=== PATIENT | male | born 1960 ===

== ENCOUNTER 2020-05-08 07:57 | Outpatient (REF) | payer OTHER, SELFPAY ==
[2020-05-08 08:39] LABS: MANUAL DIFF FLAG NO
[2020-05-08 08:53] LABS: Basophils Percent Auto 0.5 % (0-2); Eosinophils Absolute Auto 0.2 X10*3/uL (0.0-0.4); Eosinophils Percent Auto 1.8 % (0-4); Hematocrit 43.1 % (42-52); Hemoglobin 13.8 g/dl (14.0-18.0); Imm Gran Abs Auto 0.03 X10*3/uL (0.00-0.03); Imm Gran Pct Auto 0.4 % (0.0-0.4); Lymphocytes Absolute Auto 2.4 X10*3/uL (1.2-4.9); Lymphocytes Percent Auto 28.6 % (20-40); Mean Corpuscular Hemoglobin 28.2 pg (27.0-33.0); Mean Corpuscular Volume 88.1 fL (80-98); Mean Platelet Volume 10.9 fL (9.4-12.4); Monocytes Absolute Auto 0.7 X10*3/uL (0.1-1.2); Monocytes Percent Auto 7.6 % (2-11); Neutrophils Absolute Auto 5.2 X10*3/uL (2.0-8.3); Neutrophils Percent Auto 61.1 % (45-73); Platelet Count 333 X10*3/uL (160-400); Red Blood Count 4.89 X10*6/uL (4.60-5.80); Red Cell Distribution Width 13.3 % (11.0-16.0); White Blood Count 8.5 X10*3/uL (4.8-10.8)
[2020-05-08 09:19] LABS: Alanine Aminotransferase 21 U/L (0-40); Albumin Level 4.5 g/dL (3.5-5.0); Alkaline Phosphatase 102 U/L (39-117); Anion Gap 13 (12-20); Aspartate Amino Transferase 18 U/L (5-37); Bilirubin Total 0.4 mg/dL (0.0-1.0); Blood Urea Nitrogen 14 mg/dL (9-16); Calcium 9.1 mg/dL (8.4-10.2); Carbon Dioxide 28 mmol/L (22-29); Chloride 106 mmol/L (96-108); Cholesterol 173 mg/dL; Estimated Glomerular Filt Rate > 60; Glucose Fasting 119 mg/dL (60-99); HDL Cholesterol 39 mg/dL; LDL Cholesterol Calculated 122 mg/dl; Potassium 5.1 mmol/l (3.3-5.1); Sodium 142 mmol/L (135-145); Total Protein 7.7 g/dL (6.5-8.0); Triglycerides 60 mg/dL
[2020-05-08 09:41] LABS: TSH reflex Free T4 2.01 mIU/mL (0.32-4.0)
== END 2020-05-08 07:58 | disposition home or self-care (01) ==
LOC: HO.LAB 07:57
PROVIDERS: Visit Provider Physician Assistant
DX: E78.9 Disorder of lipoprotein metabolism, unspecified (principal); I10 Essential (primary) hypertension
CPT/HCPCS: 36415; 80053; 80061; 84443; 85025

== ENCOUNTER 2020-06-29 12:43 | Outpatient (REF) | payer OTHER, SELFPAY ==
--- NOTE | 2020-06-29 17:39 | PFT_ITS ---
Forced vital capacity, FEV1 are normal. IMT98-65 is also normal, MVV normal. Post bronchodilator therapy, no significant changes noted. Total lung capacity and residual volume normal. Diffusion capacity normal. CONCLUSION: Normal pulmonary function test. No evidence of obstructive or restrictive pulmonary disorder. Nell Alex MD MSB/MODL / [id number]
== END 2020-06-29 12:44 | disposition home or self-care (01) ==
LOC: HO.RESP 12:43
PROVIDERS: Visit Provider Physician Assistant
DX: J45.20 Mild intermittent asthma, uncomplicated (principal); R73.09 Other abnormal glucose; E78.9 Disorder of lipoprotein metabolism, unspecified; I10 Essential (primary) hypertension
CPT/HCPCS: 94060; 94727; 94729

== ENCOUNTER 2020-10-09 09:06 | Outpatient (REF) | payer OTHER, SELFPAY ==
[2020-10-09 09:53] LABS: Hematocrit 43.9 % (42-52); Hemoglobin 14.2 g/dl (14.0-18.0); Mean Corpuscular HGB Conc 32.3 g/dl (31.0-36.0); Mean Corpuscular Hemoglobin 28.1 pg (27.0-33.0); Mean Corpuscular Volume 86.8 fL (80-98); Mean Platelet Volume 10.5 fL (9.4-12.4); Platelet Count 353 X10*3/uL (160-400); Red Blood Count 5.06 X10*6/uL (4.60-5.80); Red Cell Distribution Width 13.8 % (11.0-16.0); White Blood Count 9.1 X10*3/uL (4.8-10.8)
[2020-10-09 10:14] LABS: Alanine Aminotransferase 18 U/L (0-40); Albumin Level 4.4 g/dL (3.5-5.0); Alkaline Phosphatase 100 U/L (39-117); Anion Gap 12 (12-20); Aspartate Amino Transferase 16 U/L (5-37); Bilirubin Total 0.7 mg/dL (0.0-1.0); Blood Urea Nitrogen 19 mg/dL (9-16); Calcium 9.6 mg/dL (8.4-10.2); Carbon Dioxide 27 mmol/L (22-29); Chloride 106 mmol/L (96-108); Cholesterol 170 mg/dL; Estimated Glomerular Filt Rate 54; Glucose Fasting 114 mg/dL (60-99); HDL Cholesterol 38 mg/dL; LDL Cholesterol Calculated 116 mg/dl; Potassium 5.1 mmol/L (3.3-5.1); Sodium 140 mmol/L (135-145); Total Protein 7.7 g/dL (6.5-8.0); Triglycerides 80 mg/dL
[2020-10-09 10:20] LABS: Estimated Average Glucose 131 mg/dL; Hemoglobin A1c % 6.2 %
== END 2020-10-09 09:07 | disposition home or self-care (01) ==
LOC: HO.LAB 09:06
PROVIDERS: PCP Physician Assistant; Visit Provider Physician Assistant
DX: Z12.5 Encounter for screening for malignant neoplasm of prostate (principal); E78.9 Disorder of lipoprotein metabolism, unspecified; I10 Essential (primary) hypertension; R73.09 Other abnormal glucose
CPT/HCPCS: 36415; 80053; 80061; 83036; 84153; 85027

== ENCOUNTER 2021-03-06 07:19 | Outpatient (REF) | payer OTHER, SELFPAY ==
[2021-03-06 08:33] LABS: Creatinine Urine 103.05 mg/dL; Microalbum/Creatinine Ratio Ur 48.5 ug/mg cr
[2021-03-06 08:34] LABS: Alanine Aminotransferase 25 U/L (0-40); Albumin Level 4.3 g/dL (3.5-5.0); Alkaline Phosphatase 114 U/L (39-117); Anion Gap 10 (12-20); Aspartate Amino Transferase 19 U/L (5-37); Bilirubin Total < 0.2 mg/dL (0.0-1.0); Blood Urea Nitrogen 18 mg/dL (9-16); Calcium 9.8 mg/dL (8.4-10.2); Carbon Dioxide 27 mmol/L (22-29); Chloride 107 mmol/L (96-108); Cholesterol 170 mg/dL; Estimated Glomerular Filt Rate 55; Glucose Fasting 130 mg/dL (60-99); HDL Cholesterol 33 mg/dL; LDL Cholesterol Calculated 109 mg/dl; Potassium 4.7 mmol/L (3.3-5.1); Sodium 139 mmol/L (135-145); Total Protein 7.5 g/dL (6.5-8.0); Triglycerides 143 mg/dL
[2021-03-06 08:53] LABS: TSH reflex Free T4 3.62 uIU/mL (0.32-4.0)
[2021-03-06 09:46] LABS: Estimated Average Glucose 137 mg/dL; Hemoglobin A1c % 6.4 %
== END 2021-03-06 07:20 | disposition home or self-care (01) ==
LOC: HO.LAB 07:19
PROVIDERS: PCP Physician Assistant; Visit Provider Physician Assistant
DX: I10 Essential (primary) hypertension (principal); R73.09 Other abnormal glucose; E78.9 Disorder of lipoprotein metabolism, unspecified
CPT/HCPCS: 36415; 80053; 80061; 82043; 83036; 84443

== ENCOUNTER → 2021-05-06 13:02 | Outpatient (BNVA) | payer OTHER, SELFPAY | PROVIDERS: PCP Physician Assistant; Referring Provider Physician Assistant; Visit Provider Surgery | DX: Z01.818 Encounter for other preprocedural examination (principal); D36.7 Benign neoplasm of other specified sites; D23.5 Other benign neoplasm of skin of trunk | CPT/HCPCS: 99202 ==

== ENCOUNTER 2021-05-25 10:26 | Outpatient (REF) | payer OTHER, SELFPAY ==
[2021-05-25 11:41] LABS: Binax Internal Control QC Valid; Binax Lot number: 9864; Binax Now Covid-19 Ag Negative (Negative)
== END 2021-05-25 10:27 | disposition home or self-care (01) ==
LOC: HO.LAB 10:26
PROVIDERS: Visit Provider Internal Medicine
DX: Z20.822 Contact with and (suspected) exposure to COVID-19 (principal)
CPT/HCPCS: 36415; C9803

== ENCOUNTER 2021-06-13 12:54 | Outpatient (REF) | payer OTHER, SELFPAY ==
[2021-06-13 12:58] VITALS: BMI 38.0
[2021-06-13 12:59] VITALS: BP 150/73; PULSE 88; RESP 16; TEMP 37.1; O2SAT 97
[2021-06-13 13:17] VITALS: BP 157/63; PULSE 86; RESP 16; O2SAT 96
--- NOTE | 2021-06-13 13:19 | W.PM.OPN ---
Operative Note Operative Note Date of Service: 06/13/21 Narrative: Preop diagnosis: Multiple lesions, neck and left axilla Postop diagnosis: Multiple skin lesions, neck and left axilla Procedure: Excision and fulguration of multiple skin lesions, x 12, neck and left axilla Surgeon: Bridger Hernandez MD The patient is 60-year-old male with multiple skin lesions on the neck and left axilla. This all appeared to be papillomatous lesions ranging in size from about 1 cm to about 2 mm. All of these had very narrow stalks. He understood the technique of excision and fulguration under local anesthesia and was aware of the risks, benefits, and alternatives Was brought to the minor procedure room. He was placed supine. All the skin lesions on the neck and axilla were prepped and draped. Lidocaine 1% was used for local anesthesia. I excised all of the skin lesions at the base using Metzenbaum scissors. There were larger lesions x3 on the left axilla measured about 1 cm each but with narrow bases. The smaller lesions which were less than 2 mm were cauterized using the i-STAT . I also cauterized all the excision areas for hemostasis. Once hemostasis was ensured, I proceeded then apply small Band aids. The procedure was completed The patient tolerated procedure well. No complication noted. Estimated blood loss was less than 1 cc He was given wound care instructions.
== END 2021-06-13 12:55 | disposition home or self-care (01) ==
LOC: HO.MS 12:54
PROVIDERS: PCP Physician Assistant; Visit Provider Surgery
PROC: (CPT 11200; principal; 2021-06-13 13:00)
DX: L91.8 Other hypertrophic disorders of the skin (principal)
CPT/HCPCS: 11200; 88304; 88305

== ENCOUNTER → 2021-06-24 14:53 | Outpatient (BNVA) | payer OTHER, SELFPAY | PROVIDERS: PCP Physician Assistant; Referring Provider Physician Assistant; Visit Provider Surgery | DX: Z48.817 Encounter for surgical aftercare following surgery on the skin and subcutaneous tissue (principal); Z87.2 Personal history of diseases of the skin and subcutaneous tissue | CPT/HCPCS: 99212 ==

== ENCOUNTER → 2021-07-30 13:39 | Outpatient (BNVA) | payer OTHER, SELFPAY | PROVIDERS: PCP Physician Assistant; Visit Provider Orthopaedic Surgery | DX: G56.01 Carpal tunnel syndrome, right upper limb (principal) | CPT/HCPCS: 99202 ==

== ENCOUNTER 2021-08-12 09:57 | Day surgery (SDC) | payer OTHER, SELFPAY ==
--- NOTE | 2021-08-12 10:01 | W.PM.OPN ---
Operative Note Operative Note Date of Service: 08/12/21 Narrative: Preop diagnosis: 1. right Carpal tunnel syndrome Postop diagnosis: same Procedure: 1. right Carpal tunnel release Surgeon: Itzel Garcia MD Anesthesia: local block using 1% lidocaine with epinephrine Findings: Thickened transverse carpal ligament. hyperemic and mildly swollen median nerve through the carpal tunnel EBL: Less than 5 mL Specimens: None Complications: None Disposition: Brought to recovery room in stable condition Plan: Follow-up for 10-14 days for wound check and suture removal Indications: The patient is 60 years old, with right carpal tunnel syndrome that has been unresponsive to nonoperative management. The risks and benefits of operative treatment including but not limited to risk of damage to blood vessels, nerves, tendons, infection, persistent pain, persistent symptoms, or possible need for additional surgery were discussed with the patient and the patient wishes to proceed with surgery. Procedure: Once consent was obtained a local block was performed using a combination of 1% lidocaine with epinephrine. The patient was then brought back to the operating suite and placed on the operative table in supine position. A tourniquet was applied to the proximal aspect of the right upper extremity and the limb was prepped and draped in a standard surgical fashion. Once assured that we had a good block, a 1.5 cm longitudinal incision was made centered over the carpal tunnel. The incision was made through the skin to the subcutaneous tissues using a #15 blade. Dissection was made down to the level of the transverse carpal ligament with care being taken to protect the palmar cutaneous nerve. Once the transverse carpal ligament was clearly visualized, a longitudinal incision was made in the transverse carpal ligament 1st using a #15 blade, then using tenotomy scissors under direct visualization. Care was taken to look for and protect the motor branch of the median nerve when seen in this area. I extended the incision proximally approximately 1 cm using a zigzag at the distal palmar crease. This was done using a 15. Blade. I then carefully dissected down to the level of the transverse carpal ligament. The a longitudinal incision in the transverse carpal ligament was then extended proximally. This allowed me to better visualize the median nerve and the tendons as they passed through the carpal tunnel. The median nerve was noted to be somewhat swollen and hyperemic through the carpal tunnel. Once satisfied with our carpal tunnel release the wound was copiously irrigated with normal saline and hemostasis was obtained with a brief period of local pressure. The skin edges were reapproximated with some 5.0 nylon suture material and a sterile dressing was applied. The patient appears to have tolerated the procedure well and with no complications. All digits were well vascularized at the conclusion of the case.
[2021-08-12 11:28] VITALS: BP 181/92; PULSE 69; RESP 16; TEMP 36.4; O2SAT 99
[2021-08-12 11:30] VITALS: BMI 36.1
--- NOTE | 2021-08-12 12:09 | MHC.SHP ---
Pre-Procedural Eval Section A Date of Service: 08/12/21 The patient is an INPATIENT: No Changes since office visit: No Cold of Flu in the past 2 weeks, No New Medical Problems, No Changes in Medication and No Patient answered all questions The History & Physical has been completed within 30 days and I have reviewed it.: Yes Section B Chief Complaint: carpal tunnel Allergies: Allergies Allergy/AdvReac Type Severity Reaction Status Date / Time warfarin [Coumadin] Allergy Unknown rash Verified 08/12/21 11:26 lisinopril AdvReac Intermediate Cough Verified 08/12/21 11:26 Plan I have reviewed the history and physical and performed a pertinent physical examination on my patient. No changes have occurred unless specified.
[2021-08-12 12:52] VITALS: BP 188/87; PULSE 73; RESP 18; TEMP 37; O2SAT 98
== END 2021-08-12 12:54 | disposition home or self-care (01) ==
PROVIDERS: PCP Physician Assistant; Visit Provider Orthopaedic Surgery
PROC: (CPT 64721; principal; 2021-08-12 11:40)
DX: G56.01 Carpal tunnel syndrome, right upper limb (principal); R20.0 Anesthesia of skin; Z88.8 Allergy status to other drugs, medicaments and biological substances; Z79.899 Other long term (current) drug therapy
CPT/HCPCS: 64721; J0171

== ENCOUNTER → 2021-08-27 10:10 | Outpatient (BNVA) | payer OTHER, SELFPAY | PROVIDERS: PCP Physician Assistant; Visit Provider Orthopaedic Surgery | DX: Z48.811 Encounter for surgical aftercare following surgery on the nervous system (principal); Z86.69 Personal history of other diseases of the nervous system and sense organs | CPT/HCPCS: 99212 ==

== ENCOUNTER 2021-11-01 07:02 | Outpatient (REF) | payer OTHER, SELFPAY ==
[2021-11-01 07:48] LABS: Hemoglobin 13.9 g/dl (14.0-18.0); Mean Corpuscular HGB Conc 32.3 g/dl (31.0-36.0); Mean Corpuscular Volume 86.5 fL (80.0-98.0); Mean Platelet Volume 10.6 fL (9.4-12.4); Platelet Count 290 X10*3/uL (160-400); Red Blood Count 4.97 X10*6/uL (4.60-5.80); Red Cell Distribution Width 13.2 % (11.0-16.0); White Blood Count 9.1 X10*3/uL (4.8-10.8)
[2021-11-01 07:56] LABS: Microalbum/Creatinine Ratio Ur 51.3 ug/mg cr
[2021-11-01 07:57] LABS: Alanine Aminotransferase 21 U/L (0-40); Albumin Level 4.2 g/dL (3.5-5.0); Alkaline Phosphatase 93 U/L (39-117); Anion Gap 13 (12-20); Aspartate Amino Transferase 18 U/L (5-37); Bilirubin Total 0.5 mg/dL (0.0-1.0); Blood Urea Nitrogen 16 mg/dL (9-16); Calcium 9.2 mg/dL (8.4-10.2); Carbon Dioxide 24 mmol/L (22-29); Chloride 109 mmol/L (96-108); Cholesterol 149 mg/dL; Estimated Average Glucose 134 mg/dL; Estimated Glomerular Filt Rate > 60; Glucose Fasting 120 mg/dL (60-99); HDL Cholesterol 37 mg/dL; Hemoglobin A1c % 6.3 %; LDL Cholesterol Calculated 99 mg/dl; Potassium 4.9 mmol/L (3.3-5.1); Sodium 141 mmol/L (135-145); Total Protein 7.5 g/dL (6.5-8.0); Triglycerides 66 mg/dL
[2021-11-01 08:13] LABS: Prostate Specific Antigen Scr 2.81 ng/mL (<0.05-4.0)
== END 2021-11-01 07:03 | disposition home or self-care (01) ==
LOC: HO.LAB 07:02
PROVIDERS: PCP Physician Assistant; Visit Provider Physician Assistant
DX: Z12.5 Encounter for screening for malignant neoplasm of prostate (principal); R73.09 Other abnormal glucose; E78.9 Disorder of lipoprotein metabolism, unspecified; I10 Essential (primary) hypertension
CPT/HCPCS: 36415; 80053; 80061; 82043; 83036; 84153; 85027

== ENCOUNTER 2022-03-24 08:57 | Outpatient (REF) | payer OTHER, SELFPAY ==
[2022-03-24 09:38] LABS: Hematocrit 41.4 % (42.0-52.0); Hemoglobin 13.6 g/dl (14.0-18.0); Mean Corpuscular HGB Conc 32.9 g/dl (31.0-36.0); Mean Corpuscular Hemoglobin 28.5 pg (27.0-33.0); Mean Corpuscular Volume 86.6 fL (80.0-98.0); Mean Platelet Volume 10.6 fL (9.4-12.4); Platelet Count 312 X10*3/uL (160-400); Red Blood Count 4.78 X10*6/uL (4.60-5.80); Red Cell Distribution Width 13.2 % (11.0-16.0); White Blood Count 9.1 X10*3/uL (4.8-10.8)
[2022-03-24 09:48] LABS: Estimated Average Glucose 131 mg/dL; Hemoglobin A1c % 6.2 %
[2022-03-24 10:13] LABS: Alanine Aminotransferase 16 U/L (0-40); Albumin Level 4.4 g/dL (3.5-5.0); Alkaline Phosphatase 94 U/L (39-117); Anion Gap 13 (12-20); Aspartate Amino Transferase 14 U/L (5-37); Bilirubin Total 0.5 mg/dL (0.0-1.0); Blood Urea Nitrogen 13 mg/dL (9-16); Calcium 9.9 mg/dL (8.4-10.2); Carbon Dioxide 28 mmol/L (22-29); Chloride 106 mmol/L (96-108); Cholesterol 167 mg/dL; Estimated Glomerular Filt Rate > 60; Glucose Fasting 102 mg/dL (60-99); HDL Cholesterol 37 mg/dL; LDL Cholesterol Calculated 98 mg/dl; Potassium 4.8 mmol/L (3.3-5.1); Sodium 142 mmol/L (135-145); Total Protein 7.6 g/dL (6.5-8.0); Triglycerides 160 mg/dL
[2022-03-24 10:26] LABS: TSH reflex Free T4 2.06 uIU/mL (0.32-4.0)
== END 2022-03-24 08:58 | disposition home or self-care (01) ==
LOC: HO.LAB 08:57
PROVIDERS: PCP Physician Assistant; Visit Provider Physician Assistant
DX: E78.9 Disorder of lipoprotein metabolism, unspecified (principal); R73.09 Other abnormal glucose; I10 Essential (primary) hypertension
CPT/HCPCS: 36415; 80053; 80061; 83036; 84443; 85027

== ENCOUNTER 2022-04-08 15:45 | Outpatient (REF) | payer OTHER, SELFPAY ==
--- NOTE | ~2022-04-08 | XR_ITS ---
EXAMINATION: XR ABDOMEN KUB CLINICAL INDICATION: Unspecified abdominal pain. COMPARISON: CT abdomen and pelvis dated 02/22/2016. TECHNIQUE: 2 AP views of the abdomen and pelvis are submitted. FINDINGS: The bowel gas pattern is normal, with no evidence of ileus or obstruction. There is gas and stool identified to the level of the rectum. No free intraperitoneal air seen. No unusual soft tissue calcifications are noted. No acute osseous abnormality is seen. There is multi-level thoracolumbar spondylosis. XR/XR KUB IMPRESSION: Unremarkable examination.
== END 2022-04-08 15:46 | disposition home or self-care (01) ==
LOC: HO.XRAY 15:45
PROVIDERS: PCP Physician Assistant; Visit Provider Physician Assistant
DX: R10.9 Unspecified abdominal pain (principal)
CPT/HCPCS: 74018

== ENCOUNTER 2022-10-27 07:05 | Outpatient (REF) | payer OTHER, SELFPAY ==
[2022-10-27 07:51] LABS: Hematocrit 41.7 % (42.0-52.0); Hemoglobin 13.6 g/dl (14.0-18.0); Mean Corpuscular HGB Conc 32.6 g/dl (31.0-36.0); Mean Corpuscular Hemoglobin 28.6 pg (27.0-33.0); Mean Corpuscular Volume 87.6 fL (80.0-98.0); Mean Platelet Volume 10.7 fL (9.4-12.4); Platelet Count 311 X10*3/uL (160-400); Red Blood Count 4.76 X10*6/uL (4.60-5.80); Red Cell Distribution Width 13.2 % (11.0-16.0); White Blood Count 8.9 X10*3/uL (4.8-10.8)
[2022-10-27 08:21] LABS: Alanine Aminotransferase 18 U/L (0-40); Albumin Level 4.1 g/dL (3.5-5.0); Alkaline Phosphatase 84 U/L (39-117); Anion Gap 11 (12-20); Aspartate Amino Transferase 15 U/L (5-37); Bilirubin Total 0.4 mg/dL (0.0-1.0); Blood Urea Nitrogen 14 mg/dL (9-16); Calcium 9.2 mg/dL (8.4-10.2); Carbon Dioxide 27 mmol/L (22-29); Chloride 106 mmol/L (96-108); Cholesterol 183 mg/dL; Estimated Glomerular Filt Rate > 60; Glucose Fasting 118 mg/dL (60-99); HDL Cholesterol 32 mg/dL; LDL Cholesterol Calculated 122 mg/dl; Potassium 4.1 mmol/L (3.3-5.1); Sodium 140 mmol/L (135-145); Total Protein 7.2 g/dL (6.5-8.0); Triglycerides 145 mg/dL
[2022-10-27 08:38] LABS: TSH reflex Free T4 2.78 uIU/mL (0.32-4.0)
== END 2022-10-27 07:06 | disposition home or self-care (01) ==
LOC: HO.LAB 07:05
PROVIDERS: PCP Physician Assistant; Visit Provider Physician Assistant
DX: I10 Essential (primary) hypertension (principal); E78.9 Disorder of lipoprotein metabolism, unspecified
CPT/HCPCS: 36415; 80053; 80061; 84443; 85027

== ENCOUNTER 2023-01-14 14:38 | Outpatient (AMB) | payer OTHER, SELFPAY ==
[2023-01-14 14:59] VITALS: BP 124/70; PULSE 70; O2SAT 98; BMI 37.9
--- NOTE | 2023-01-14 14:59 | MHC.PC.OV ---
Vital Signs 01/14/23 14:59 Height 5 ft 6 in Weight 235 lb BMI 37.9 BP 124/70 Blood Pressure Location Lt brachial Position Sitting Pulse 70 Pulse Source Pulse Oximeter Pulse Oximetry (%) 98 Oxygen Delivery Method Room Air Intake Visit Reasons: 3 month f/u Intake Note: Pt is here for 3 months F/U Model Photographers' Required: No Accompanied by: Self / Same As Patient Allergies warfarin [Coumadin] Allergy (Unknown, Verified 01/14/23 15:21) rash lisinopril Adverse Reaction (Intermediate, Verified 01/14/23 15:21) Cough Medication List - Last Reconciled 01/14/23 by Alejandro Castellanos PA-C albuterol sulfate 90 mcg/actuation (Ventolin HFA) 2 puffs inhalation Q6H PRN apixaban 5 mg PO BID 90 days cetirizine (Zyrtec) 10 mg PO DAILY 90 days fluticasone propionate 110 mcg/actuation (Flovent HFA) 1 puff inhalation BID 30 days hydrochlorothiazide 12.5 mg PO DAILY losartan 100 mg PO DAILY 90 days metformin 500 mg PO BID 90 days metoprolol succinate ER 100 mg PO DAILY 90 days montelukast (Singulair) 10 mg PO DAILY 90 days simvastatin 20 mg PO DAILY 90 days Tobacco use date assessed: 10/07/22 Dental Screening Dental Screen Date: 01/14/23 Did you have a dental visit in the last 12 months?: No Did you have a dental problem in the last 6 months where you did not have access to dental care?: No Was dental information given to patient?: Patient declined HPI 3 month f/u HPI Details Sergio is a 31 y ear/old M here tod ay for a a follow- up visit ? Narinder katz has a past m edical history sig nificant for DVT, hypertension, impa ired glucose metab olism, hypertensio n, obesity. Cathy rn--> reports over the last week hav ing bilateral shou lder pain worse in the morning when he wakes up. He d enies any trauma t o his upper extrem ities. He is inte rested in getting x-rays. . ?? .. ? Hypertension :? Patient reports his blood pressur es have been 130s systolic consisten tly.? Continues on losartan , hydroc hlorothiazide and metoprolol. ? .. ? Histor y of recurrent DVT left lower extrem ity: Patient seen by Hematology for recurrent DVT-- > 01/24/2020 and recom mends long-term an ticoagulation.? Ponce s left lower extre mity edema has got ten better and onl y has trace edema. ? Otherwise denies any overt signs o f bleeding. .. As thma:? Has been we ll controlled over the last several months? with the a ddition of mainten ance inhalers.? He uses Flovent inha ler twice a day wi th good effect.? D enies any nighttim e awakenings with asthma symptoms. . Obesity:? Unfort unately has not lo st any weight sinc e last office visi t.? He does unders tand his BMI is ov er 30 and continue s to try to be mor e physically activ e to reduce his we ight. .. Impaired glucose metabolis m:? Patient fasti ng blood sugar sli ghtly elevated, A1 c remains acceptab le.? He continues on metformin 500 b .i.d. though has n ot been taking thi s medication in qu ite a while. . ? Laboratory Tests 03/24/22 03/24/22 10/27/22 09:08 09:08 07:23 Fasting Glucose 102 H 118 H Hemoglobin A1c % 6.2 Cholesterol 183 LDL Cholesterol, C alc 122 TSH 2.06 2.78 [facility] Medical History (Updated 01/15/23 @ 07:41 by Alejandro Castellanos PA-C) Erectile dysfunction Fibroepithelial polyp Left flank pain Papilloma Recurrent deep vein thrombosis (DVT) Surgical History History of surgical removal of skin lesion No pertinent past surgical history S/P carpal tunnel release Family History Father No problems noted. Mother Arthritis Sister Heart attack Son Asthma Social History Housing: House Alcohol intake: former Patient Tobacco Use Status: Never used Tobacco e-Cigarette/Vaping Use: Never Used Second Hand Smoke Exposure: No service: No Current occupational status: employed Current occupation: [employer] Cognitive needs: No Hearing needs: No Vision needs: Yes Questionnaire Thrive Questionnaire Date Thrive assessed: 10/07/22 STEPHANIE-7 AMB Questionnaire STEPHANIE-7 Date STEPHANIE - 7 assessed: 10/07/22 Source: Developed by Drs. Yoni Rose, Ml Escobar, Danielito Rachel and colleagues, with an educational danica from [employer]. Review of Systems Const Denies headache(s) Eyes Denies loss of vision ENT Denies vertigo, Denies dizziness, Denies headache(s) and Denies sore throat Card Denies chest pain, Denies leg edema and Denies lightheadedness Resp Denies cough, Denies hemoptysis and Denies wheezing GI Denies abdominal pain, Denies melena, Denies constipation, Denies diarrhea and Denies vomiting Denies dysuria, Denies urinary frequency and Denies urinary urgency Musc Denies arthralgias, Denies joint swelling, Denies numbness and Denies tingling Neuro Denies Abnormal speech present, Denies behavioral changes, Denies vertigo, Denies dizziness, Denies headache(s), Denies loss of vision, Denies memory loss, Denies numbness and Denies tingling Psych Denies anxiety, Denies behavioral changes, Denies depression, Denies memory loss and Denies panic attacks Dominguez/Lymph Denies easy bleeding and Denies easy bruising Aller/Immun Denies wheezing Physical exam (Primary Care) Vital Signs: Last Vital Signs Pulse 70 01/14/23 14:59 BP 124/70 01/14/23 14:59 Pulse Ox 98 01/14/23 14:59 Oxygen Delivery Method Room Air 01/14/23 14:59 BMI result Body Mass Index 37.9 BMI Assessment/Plan discussion: High Tobacco/Smoking Status: Tobacco use Status Tobacco use date assessed 10/07/22 01/14/23 15:06 Patient Tobacco Use Status Never used Tobacco 01/14/23 15:06 e-Cigarette/Vaping Use Never Used 01/14/23 15:06 Thrive Assessment: Date of Thrive Assessment Date Thrive assessed 10/07/22 01/14/23 15:06 Const Other: Obese General: healthy appearing, no acute distress, alert and awake Nutritional Appearance: well nourished Orientation/consciousness: oriented to person, oriented to place and oriented to time HENMT Ears: TM's normal bilaterally General nose exam: Normal nasal mucous membranes and turbinates present Eyes Conjunctivae: conjunctivae normal Sclerae: sclerae normal Pupils: Equal, round and reactive pupils present Neck Neck: Yes no lymphadenopathy and Yes no JVD Thyroid: Thyroid normal Carotids: no bruits Resp Effort & Inspection: normal respiratory effort and not tachypneic Auscultation: no crackles, no rales, no rhonchi and no wheezes Cardio Rate: regular rate Rhythm: regular rhythm Heart sounds: no murmurs and normal S1 and S2 GI Palpation (GI): Soft to palpation, nontender, no hepatomegaly and no splenomegaly Auscultation: normal bowel sounds Skin General skin exam: no rashes or lesions noted and dry skin Neuro General: oriented to person, oriented to place and oriented to time Cranial nerves: Yes Equal, round and reactive pupils present Speech: No Abnormal speech present Gait exam (Neuro): Normal gait present Motor exam (neuro): no tremor noted Extrem Right upper extremity: full ROM Left upper extremity: full ROM Right lower extremity: full ROM; no edema Left lower extremity: full ROM; no edema Psych Mental Status: mental status grossly normal Speech and movement: Normal speech and movement present Affect: normal affect Attitude: cooperative Thought process: Normal thought process present Assessment and Plan Assessment & Plan (1) HTN (hypertension): Code(s): I10 - Essential (primary) hypertension Qualifiers: Hypertension type: essential hypertension Qualified Code(s): I10 - Essential (primary) hypertension Plan: Patient's blood pressure acceptable today in office. Will continue current dose of antihypertensive . Goal blood pressure to be below 40/90 (2) Borderline high cholesterol: Code(s): E78.9 - Disorder of lipoprotein metabolism, unspecified Plan: Patient's most recent lipid panel stable. Continues on low-dose statin therapy. Goal LDL to remain below 160 (3) Impaired glucose metabolism: Code(s): R73.09 - Other abnormal glucose Plan: Patient continues on metformin 500 b.i.d.. A1c acceptable. Continue on lifestyle to reduce carbohydrates in his diet. (4) Bilateral shoulder pain: Code(s): M25.511 - Pain in right shoulder; M25.512 - Pain in left shoulder Qualifiers: Chronicity: acute Qualified Code(s): M25.511 - Pain in right shoulder; M25.512 - Pain in left shoulder Plan: Will send for bilateral shoulder x-rays (5) Obese: Code(s): E66.9 - Obesity, unspecified Qualifiers: Obesity type: due to excess calories Obesity classification: adult class 2 (BMI 35 - 39.9) Serious obesity comorbidity presence: without serious comorbidity Body mass index: BMI 37.0-37.9 Qualified Code(s): E66.09 - Other obesity due to excess calories; Z68.37 - Body mass index [BMI] 37.0-37.9, adult Plan: Patient does understand his BMI is over 30 will work on being more physically active and adapting to better eating habits to reduce his weight Orders: Orders XR shoulder LT 1V 01/14/23 M25.511 - Pain in right shoulder, M25.512 - Pain in left shoulder XR shoulder RT 1V 01/14/23 M25.511 - Pain in right shoulder, M25.512 - Pain in left shoulder Comprehensive [place]. Panel Fast 5 Months I10 - Essential (primary) hypertension Lipid Panel 5 Months E78.9 - Disorder of lipoprotein metabolism, unspecified Prostate Specific Antigen Scr 5 Months I10 - Essential (primary) hypertension, Z12.5 - Encounter for screening for malignant neoplasm of prostate Microalbumin, Random (w Creat) 5 Months I10 - Essential (primary) hypertension Complete Blood Count no Diff 5 Months I82.409 - Acute embolism and thrombosis of unspecified deep veins of unspecified lower extremity Medications: Refilled cetirizine (Zyrtec) 10 mg PO DAILY 90 days 90 tabs 3RF allergy symptoms J45.20 - Mild intermittent asthma, uncomplicated Coding Level of Care Code Est Pt Level 4 (76173) Diagnoses HTN (hypertension) I10 Hypertension type: essential hypertension Borderline high cholesterol E78.9 Impaired glucose metabolism R73.09 Bilateral shoulder pain M25.511; M25.512 Chronicity: acute Obese E66.09; Z68.37 Obesity type: due to excess calories Obesity classification: adult class 2 (BMI 35 - 39.9) Serious obesity comorbidity presence: without serious comorbidity Body mass index: BMI 37.0-37.9
== END 2023-01-14 15:33 | disposition home or self-care (01) ==
PROVIDERS: PCP Physician Assistant; Visit Provider Physician Assistant
DX: I10 Essential (primary) hypertension (principal); E78.9 Disorder of lipoprotein metabolism, unspecified; R73.09 Other abnormal glucose; M25.511 Pain in right shoulder; M25.512 Pain in left shoulder; E66.09 Other obesity due to excess calories; Z68.37 Body mass index [BMI] 37.0-37.9, adult
CPT/HCPCS: 99214

== ENCOUNTER 2023-01-14 15:37 | Outpatient (REF) | payer OTHER, SELFPAY ==
--- NOTE | ~2023-01-14 | XR_ITS ---
EXAMINATION: XR SHOULDER BILATERAL CLINICAL INFORMATION: Bilateral shoulder pain, left more than right COMPARISON: None available. TECHNIQUE: AP, Grashey, scapular Y and axillary views of both shoulders were acquired. FINDINGS: There is no evidence of fracture or dislocation of either the left or right shoulder. There are calcifications superior to the humeral head bilaterally indicative of calcific tendinosis. The glenohumeral articulations are preserved. Mild bilateral acromioclavicular proliferative changes are noted. There appears to be a small calcific body adjacent to the greater tuberosity of the left shoulder, perhaps a loose body. XR/XR shoulder RT 1V IMPRESSION: 1. Bilateral calcific tendinosis. 2. Small osseous fragment adjacent to the left greater tuberosity, perhaps an intraosseous loose body. 3. Mild acromioclavicular proliferative changes bilaterally.
--- NOTE | ~2023-01-14 | XR_ITS ---
EXAMINATION: XR SHOULDER BILATERAL CLINICAL INFORMATION: Bilateral shoulder pain, left more than right COMPARISON: None available. TECHNIQUE: AP, Grashey, scapular Y and axillary views of both shoulders were acquired. FINDINGS: There is no evidence of fracture or dislocation of either the left or right shoulder. There are calcifications superior to the humeral head bilaterally indicative of calcific tendinosis. The glenohumeral articulations are preserved. Mild bilateral acromioclavicular proliferative changes are noted. There appears to be a small calcific body adjacent to the greater tuberosity of the left shoulder, perhaps a loose body. XR/XR shoulder LT 1V IMPRESSION: 1. Bilateral calcific tendinosis. 2. Small osseous fragment adjacent to the left greater tuberosity, perhaps an intraosseous loose body. 3. Mild acromioclavicular proliferative changes bilaterally.
== END 2023-01-14 15:38 | disposition home or self-care (01) ==
LOC: HO.XRAY 15:37
PROVIDERS: PCP Physician Assistant; Visit Provider Physician Assistant
DX: M25.511 Pain in right shoulder (principal); M25.512 Pain in left shoulder
CPT/HCPCS: 73020

== ENCOUNTER 2023-03-07 10:00 | Outpatient (AMB) | payer OTHER, SELFPAY ==
--- NOTE | 2023-03-07 11:51 | MHC.OFFWIV ---
Intake Vital Signs 03/07/23 11:54 Height 5 ft 6 in Weight 232 lb BMI 37.4 BP 138/82 Blood Pressure Location Lt brachial Position Sitting Pulse 87 Pulse Source Pulse Oximeter Pulse Oximetry (%) 97 Oxygen Delivery Method Room Air Intake Visit Reasons: EP-Dry [phone] Intake Note: Patient is here with dry cough for 2.5 weeks, tried taking Nyquil and his asthma pump, but no relief, especially at night. Patient Tobacco Use Status: Never used Tobacco Allergies warfarin [Coumadin] Allergy (Unknown, Verified 03/07/23 11:53) rash lisinopril Adverse Reaction (Intermediate, Verified 03/07/23 11:53) Cough Do you need a note to return to daycare/school/sports/work: No HPI HPI Comments History of Present Illness Details This is a 62-year-old male with history of recurrent deep vein thrombosis, hypertension, hyperlipidemia, and asthma who presents to the office today for sick visit. Patient complaining of a persistent dry cough x2 and half weeks. He states he had some viral URI symptoms such as congestion and rhinorrhea approximately 2 weeks ago. He then started to developed a persistent dry cough. He denies any chest congestion. He denies any chest pain or shortness of breath. He reports some intermittent wheezing especially at nighttime and he has been utilizing his albuterol inhaler without significant relief. He denies any fevers or chills. [facility] Medical History (Updated 01/29/23 @ 13:03 by Alejandro Castellanos PA-C) Left flank pain Fibroepithelial polyp Papilloma Erectile dysfunction Recurrent deep vein thrombosis (DVT) Surgical History S/P carpal tunnel release History of surgical removal of skin lesion No pertinent past surgical history Family History Father No problems noted. Mother Arthritis Sister Heart attack Son Asthma Social History Housing: House Alcohol intake: former Patient Tobacco Use Status: Never used Tobacco e-Cigarette/Vaping Use: Never Used Second Hand Smoke Exposure: No service: No Current occupational status: employed Current occupation: [employer] Cognitive needs: No Hearing needs: No Vision needs: Yes Review of Systems Const All systems reviewed & are unremarkable except as noted in HPI and below Reports no additional complaints Eyes Reports no additional complaints ENT Reports no additional complaints Card Reports no additional complaints Resp Reports no additional complaints GI Reports no additional complaints Reports no additional complaints Musc Reports no additional complaints Skin/Breast Reports system reviewed and no additional complaints, except as documented Neuro Reports no additional complaints Psych Reports no additional complaints Endo Reports no additional complaints Dominguez/Lymph Reports no additional complaints Aller/Immun Reports no additional complaints Physical Exam Vital Signs: Last Vital Signs Pulse 87 03/07/23 11:54 BP 138/82 03/07/23 11:54 Pulse Ox 97 03/07/23 11:54 Oxygen Delivery Method Room Air 03/07/23 11:54 BMI result Body Mass Index 37.4 Const Other: Vital signs reviewed. Constitutional: Non-toxic appearing. No acute distress. Well-developed and well-nourished. HEENT: Normocephalic and atraumatic. Moist mucous membranes. Skin: Warm and dry. No rashes or lesions noted. Neck: Full and painless range of motion. No cervical lymphadenopathy. Cardio: Regular rate and rhythm. No murmurs, gallops, or rubs. No lower extremity edema. No JVD. Pulmonary: No respiratory distress. No accessory muscle usage. Scant expiratory wheezing. Gastrointestinal: Soft, nontender, and nondistended in all 4 quadrants. Normoactive bowel sounds in all 4 quadrants. Musculoskeletal: Normal range of motion in joints throughout the body. No deformity or other signs of injury. Neuro: Alert and oriented x4. Cranial nerves 2-12 grossly intact. No focal deficits appreciated. Psych: Normal mood and affect. Assessment & Plan Assessment & Plan (1) Acute bronchitis: Code(s): J20.9 - Acute bronchitis, unspecified Plan: This is a 62-year-old male with history of essential hypertension, hyperlipidemia, asthma, and recurrent DVT who presents to the office complaining of a dry cough x2 and half weeks. On physical examination, there is scant expiratory wheezing. His vital signs are stable, his physical exam is otherwise benign, and he is overall nontoxic appearing. History and physical most consistent with acute bronchitis. Low suspicion for pulmonary embolism as patient is anticoagulated and he is taking his apixaban as prescribed and he has no shortness of breath. We will treat acute bronchitis with p.o. prednisone 40 mg daily x5 days as well as p.o. azithromycin 500 mg today followed by 250 mg daily x4 days. Patient advised to follow-up here or proceed to the emergency room if he were to develop shortness of breath, sputum production/hemoptysis, or fever/chills. Patient verbalizes understanding and he is in agreement with the plan. Medications: New prednisone 40 mg (2 x 20 mg) PO DAILY 10 tabs 0RF azithromycin For 250 mg dose pack: take 500 mg today (day 1), then 250 mg for 4 days (days 2-5) PO 6 tabs 0RF Coding Level of Care Code Est Pt Level 3 (78321) Diagnoses Acute bronchitis J20.9
[2023-03-07 11:54] VITALS: BP 138/82; PULSE 87; O2SAT 97; BMI 37.4
== END 2023-03-07 12:24 | disposition home or self-care (01) ==
PROVIDERS: PCP Physician Assistant; Visit Provider Physician Assistant Medical
DX: J20.9 Acute bronchitis, unspecified (principal)
CPT/HCPCS: 99051; 99213

== ENCOUNTER 2023-03-19 12:47 | Outpatient (RCR) | payer OTHER, SELFPAY ==
--- NOTE | 2023-03-19 13:40 | MHC.PT.EP ---
[facility] [place] Office [place] Office [place] Office [address] [phone] F: [phone] F: [phone] F: [phone] F: [phone] Physical Therapy Plan of Care Date of Evaluation: 03/19/23 Date of Surgery: Diagnosis: tendinitis of L shoulder Assessment: Patient is a 62 year old R handed male who presents with s/s consistent with L shoulder pain, L shoulder tendinitis. He works with daily job demands including [employer]. Patient past medical history includes DM, DVT, blood thinners, and back pain. Current impairments include pain, posture, ROM, strength, activity tolerance and functional mobility. Functional limitations include decreased ability to reach, lift, carry, push, pull, dress and sleep. Patient is motivated with good rehab potential. Skilled PT will address impairments and functional limitations in order to achieve goals. Frequency and Duration: The patient will be seen 2x/week for 5 weeks Short Term Goals: I with HEP - 2 weeks AROM flexion and abduction to 145 - 3 weeks TTP absent in L shoulder - 3 weeks Senior Contracts Administrator Goals: AROM full except ER 65 - 5 weeks SPADI 30/130 or better - 5 weeks Strength 4/5 grossly - 5 weeks Pain free sleep - 5 weeks Treatment Plan: Modalities to reduce pain, spasms and effusion. Manual therapy to restore motion and function. Therapeutic exercise to improve strength and flexibility. Neuromuscular re-education for posture and balance. Therapeutic activities to return to functional activities of daily living. Electronically signed by: Valentin Camilo, PT Please sign and return to therapist. Thank you for your referral.
--- NOTE | 2023-06-09 10:41 | MHC.PT.DC ---
[facility] [place] Office [place] Office [place] Office [address] [phone] F: [phone] F: [phone] F: [phone] F: [phone] Physical Therapy Discharge Report Diagnosis: tendinitis of L shoulder Date of Surgery: Date of Evaluation: 03/19/23 Date of Discharge: 03/21/23 Treatments to Date: 1 Cancellations to Date: No Shows to Date: Discharge Status: Patient Elected to Stop Discharge Summary: Patient is a 62 year old R handed male who presents with s/s consistent with L shoulder pain, L shoulder tendinitis. He works with daily job demands including [employer]. Patient past medical history includes DM, DVT, blood thinners, and back pain. Current impairments include pain, posture, ROM, strength, activity tolerance and functional mobility. Functional limitations include decreased ability to reach, lift, carry, push, pull, dress and sleep. Patient is motivated with good rehab potential. Skilled PT will address impairments and functional limitations in order to achieve goals. Electronically signed by: Valentin Camilo, PT Please sign and return to therapist. Thank you for your referral.
== END 2023-06-09 10:41 | disposition home or self-care (01) ==
LOC: HO.PTCHIC 12:47
PROVIDERS: PCP Physician Assistant; Visit Provider Physician Assistant
DX: M75.32 Calcific tendinitis of left shoulder (principal)
CPT/HCPCS: 97110; 97163

== ENCOUNTER 2023-05-19 06:36 | Outpatient (REF) | payer OTHER, SELFPAY ==
[2023-05-19 07:36] LABS: Hemoglobin 13.8 g/dl (14.0-18.0); Mean Corpuscular HGB Conc 32.1 g/dl (31.0-36.0); Mean Corpuscular Hemoglobin 28.2 pg (27.0-33.0); Mean Corpuscular Volume 87.9 fL (80.0-98.0); Mean Platelet Volume 11.2 fL (9.4-12.4); Platelet Count 314 X10*3/uL (160-400); Red Blood Count 4.89 X10*6/uL (4.60-5.80); Red Cell Distribution Width 13.4 % (11.0-16.0); White Blood Count 9.1 X10*3/uL (4.8-10.8)
[2023-05-19 08:05] LABS: Alanine Aminotransferase 17 U/L (0-40); Albumin Level 4.1 g/dL (3.5-5.0); Alkaline Phosphatase 86 U/L (39-117); Anion Gap 12 (12-20); Aspartate Amino Transferase 14 U/L (5-37); Bilirubin Total 0.3 mg/dL (0.0-1.0); Blood Urea Nitrogen 17 mg/dL (9-16); Calcium 9.7 mg/dL (8.4-10.2); Carbon Dioxide 26 mmol/L (22-29); Chloride 108 mmol/L (96-108); Cholesterol 153 mg/dL (<200); Estimated Glomerular Filt Rate 59; Glucose Fasting 129 mg/dL (60-99); HDL Cholesterol 40 mg/dL (>40); LDL Cholesterol Calculated 93 mg/dL (<100); Potassium 3.9 mmol/L (3.3-5.1); Sodium 142 mmol/L (135-145); Total Protein 7.5 g/dL (6.5-8.0); Triglycerides 100 mg/dL (<150)
[2023-05-19 08:11] LABS: Creatinine Urine 133.46 mg/dL; Microalbum/Creatinine Ratio Ur 35.9 ug/mg cr (<30)
[2023-05-19 08:32] LABS: Prostate Specific Antigen Scr 3.81 ng/mL (<0.05-4.0)
== END 2023-05-19 06:37 | disposition home or self-care (01) ==
LOC: HO.LAB 06:36
PROVIDERS: PCP Physician Assistant; Visit Provider Physician Assistant
DX: Z12.5 Encounter for screening for malignant neoplasm of prostate (principal); E78.9 Disorder of lipoprotein metabolism, unspecified; I10 Essential (primary) hypertension
CPT/HCPCS: 36415; 80053; 80061; 82043; 82570; 84153; 85027

== ENCOUNTER 2023-06-17 15:25 | Outpatient (AMB) | payer OTHER, SELFPAY ==
[2023-06-17 15:27] VITALS: BP 142/78; PULSE 88; O2SAT 98; BMI 38.3
--- NOTE | 2023-06-17 15:27 | A.OFFPC_ITS ---
Vital Signs 06/17/23 15:27 Height 5 ft 6 in Weight 237 lb 7 oz BMI 38.3 BP 142/78 H Blood Pressure Location Lt brachial Position Sitting Pulse 88 Pulse Source Pulse Oximeter Pulse Oximetry (%) 98 Oxygen Delivery Method Room Air Intake Visit Reasons: f/u HTN/ obesity/ HLD Home Health Lvn Required: No Allergies warfarin [Coumadin] Allergy (Unknown, Verified 06/17/23 15:44) rash lisinopril Adverse Reaction (Intermediate, Verified 06/17/23 15:44) Cough Medication List - Last Reconciled 06/17/23 by Alejandro Castellanos PA-C albuterol sulfate 90 mcg/actuation (Ventolin HFA) 2 puffs inhalation Q6H PRN apixaban 5 mg PO BID 90 days cetirizine (Zyrtec) 10 mg PO DAILY 90 days fluticasone propionate 110 mcg/actuation (Flovent HFA) 1 puff inhalation BID 30 days hydrochlorothiazide 12.5 mg PO DAILY losartan 100 mg PO DAILY 90 days metformin 500 mg PO BID 90 days metoprolol succinate ER 100 mg PO DAILY 90 days montelukast (Singulair) 10 mg PO DAILY 90 days simvastatin 20 mg PO DAILY 90 days Tobacco use date assessed: 06/17/23 Dental Screening Dental Screen Date: 06/17/23 HPI f/u HTN/ obesity/ HLD HPI Details Sergio is a 62 year/old M here today for a a follow-up visit ? Patient has a past medical history significant for DVT, hypertension, impaired glucose metabolism, hypertension, obesity. Concern--> reports having left knee pain over the last few weeks, attributes this to change in weather. Likely has osteoarthritis. He is interested in getting a x-ray of his left knee. Advised on trying Tylenol for his pain. .?? .. ? Hypertension:? Patient's blood pressure today in office slightly elevated. Patient reports his blood pressures have been 130s systolic consistently.? Continues on losartan , hydrochlorothiazide and metoprolol. ? .. ? History of recurrent DVT left lower extremity: Patient seen by Hematology for recurrent DVT-- > 01/24/2020 and recommends long-term anticoagulation.? Has left lower extremity edema has gotten better and only has trace edema.? Otherwise denies any overt signs of bleeding. .. ..Asthma:? Has been well controlled over the last several months? with the addition of maintenance inhalers.? He uses Flovent inhaler twice a day with good effect.? Denies any nighttime awakenings with asthma symptoms. .. .Obesity:? Unfortunately has gained a sm all amount of weight over the holidays. He does understand he needs to be more physically active and admits to being sedentary.? He does understand his BMI is over 30 and continues to try to be more physically active to reduce his weight. .. ..Impaired glucose metabolism:? Patient fasting blood sugar slightly elevated, A1c remains acceptable.? He continues on metformin 500 b.i.d. though has not been taking this medication in quite a while. [facility] Medical History (Updated 06/18/23 @ 07:30 by Alejandro Castellanos PA-C) Left flank pain Fibroepithelial polyp Papilloma Erectile dysfunction Recurrent deep vein thrombosis (DVT) Surgical History S/P carpal tunnel release History of surgical removal of skin lesion No pertinent past surgical history Family History Father No problems noted. Mother Arthritis Sister Heart attack Son Asthma Social History Housing: House Alcohol intake: former Patient Tobacco Use Status: Never used Tobacco e-Cigarette/Vaping Use: Never Used Second Hand Smoke Exposure: No service: No Current occupational status: employed Current occupation: [employer] Cognitive needs: No Hearing needs: No Vision needs: Yes Questionnaire PHQ-9 Over the last 2 weeks, how often have you been bothered by any of the following problems? 1. Little interest or pleasure in doing things: not at all 2. Feeling down, depressed, or hopeless: not at all 3. Trouble falling or staying asleep, or sleeping too much: not at all 4. Feeling tired or having little energy: not at all 5. Poor appetite or overeating: not at all 6. Feeling bad about yourself - or that you are a failure or have let yourself or your family down: not at all 7. Trouble concentrating on things, such as reading the newspaper or watching television: not at all 8. Moving or speaking so slowly that other people could have noticed. Or the opposite - being so fidgety or restless that you have been moving around a lot more than usual: not at all 9. Thoughts that you would be better off or of hurting yourself in some w ay: not at all Total score: 0 Depression Screening Interpretation: Negative Depression Screening Done: Yes 85917 - PHQ-9 Billing: Yes Source: Developed by Drs. Yoni Rose, Danielito Meneses and colleagues, with an educational danica from [email or web address]. Thrive Questionnaire Date Thrive assessed: 06/17/23 AUDIT C Alcohol Use Questionnaire (AUDIT-C) 1. How often do you have a drink containing alcohol?: Never Total Score: 0 STEPHANIE-7 AMB Questionnaire STEPHANIE-7 Date STEPHANIE - 7 assessed: 06/17/23 Source: Developed by Drs. Yoni Rose, Danielito Meneses and colleagues, with an educational danica from [email or web address]. Review of Systems Const Denies headache(s) Eyes Denies loss of vision ENT Denies vertigo, Denies dizziness, Denies headache(s) and Denies sore throat Card Denies chest pain, Denies leg edema and Denies lightheadedness Resp Denies cough, Denies hemoptysis and Denies wheezing GI Denies abdominal pain, Denies melena, Denies constipation, Denies diarrhea and Denies vomiting Denies dysuria, Denies urinary frequency and Denies urinary urgency Musc Denies arthralgias, Denies joint swelling, Denies numbness and Denies tingling Neuro Denies Abnormal speech present, Denies behavioral changes, Denies vertigo, Denies dizziness, Denies headache(s), Denies loss of vision, Denies memory loss, Denies numbness and Denies tingling Psych Denies anxiety, Denies behavioral changes, Denies depression, Denies memory loss and Denies panic attacks Dominguez/Lymph Denies easy bleeding and Denies easy bruising Aller/Immun Denies wheezing Physical exam (Primary Care) Vital Signs: Last Vital Signs Pulse 88 06/17/23 15:27 BP 142/78 H 06/17/23 15:27 Pulse Ox 98 06/17/23 15:27 Oxygen Delivery Method Room Air 06/17/23 15:27 BMI result Body Mass Index 38.3 BMI Assessment/Plan discussion: High Tobacco/Smoking Status: Tobacco use Status Tobacco use date assessed 06/17/23 06/17/23 15:28 Patient Tobacco Use Status Never used Tobacco 06/17/23 15:28 e-Cigarette/Vaping Use Never Used 06/17/23 15:28 PHQ-9: PHQ-9 Score PHQ-9: Total score 0 06/17/23 15:48 Depression Screening Interpretation: Negative Thrive Assessment: Date of Thrive Assessment Date Thrive assessed 06/17/23 06/17/23 15:28 Const Other: Obese General: healthy appearing, no acute distress, alert and awake Nutritional Appearance: well nourished Orientation/consciousness: oriented to person, oriented to place and oriented to time HENMT Ears: TM's normal bilaterally General nose exam: Normal nasal mucous membranes and turbinates present Eyes Conjunctivae: conjunctivae normal Sclerae: sclerae normal Pupils: Equal, round and reactive pupils present Neck Neck: Yes no lymphadenopathy and Yes no JVD Thyroid: Thyroid normal Carotids: no bruits Resp Effort & Inspection: normal respiratory effort and not tachypneic Auscultation: no crackles, no rales, no rhonchi and no wheezes Cardio Rate: regular rate Rhythm: regular rhythm Heart sounds: no murmurs and normal S1 and S2 GI Palpation (GI): Soft to palpation, nontender, no hepatomegaly and no splenomegaly Auscultation: normal bowel sounds Skin General skin exam: no rashes or lesions noted and dry skin Neuro General: oriented to person, oriented to place and oriented to time Cranial nerves: Yes Equal, round and reactive pupils present Speech: No Abnormal speech present Gait exam (Neuro): Normal gait present Motor exam (neuro): no tremor noted Extrem Right upper extremity: full ROM Left upper extremity: full ROM Right lower extremity: full ROM; no edema Left lower extremity: full ROM; no edema Psych Mental Status: mental status grossly normal Speech and movement: Normal speech and movement present Affect: normal affect Attitude: cooperative Thought process: Normal thought process present Assessment and Plan Assessment & Plan (1) HTN (hypertension): Code(s): I10 - Essential (primary) hypertension Qualifiers: Hypertension type: essential hypertension Qualified Code(s): I10 - Essential (primary) hypertension Plan: Patient's blood pressure acceptable today in office. Will continue current dose of antihypertensive . Goal blood pressure to be below 40/90 (2) Borderline high cholesterol: Code(s): E78.9 - Disorder of lipoprotein metabolism, unspecified Plan: Patient's most recent lipid panel stable. Continues on low-dose statin therapy. Goal LDL to remain below 160 (3) Impaired glucose metabolism: Code(s): R73.09 - Other abnormal glucose Plan: Patient fasting blood sugar remains slightly elevated. A1cs have been not in diabetic range. Patient continues on metformin 500 b.i.d.. A1c acceptable. Continue on lifestyle to reduce carbohydrates in his diet. (4) Obese: Code(s): E66.9 - Obesity, unspecified Qualifiers: Body mass index: BMI 37.0-37.9 Obesity classification: adult class 2 (BMI 35 - 39.9) Obesity type: due to excess calories Serious obesity comorbidity presence: without serious comorbidity Qualified Code(s): E66.09 - Other obesity due to excess calories; Z68.37 - Body mass index [BMI] 37.0-37.9, adult Plan: Patient does understand his BMI is over 30 will work on being more physically active and adapting to better eating habits to reduce his weight (5) Osteoarthritis of left knee: Code(s): M17.12 - Unilateral primary osteoarthritis, left knee Qualifiers: Osteoarthritis type: primary Qualified Code(s): M17.12 - Unilateral primary osteoarthritis, left knee Plan: Patient reporting atraumatic left knee pain. Likely has osteoarthritis will confirm with x-ray. Advised on use of Tylenol for his pain. Unable to take NSAID due to anticoagulation use. (6) Recurrent deep vein thrombosis (DVT): Comment: Pulmonary embolism in 2016- [place]- heterozygous positivity for prothrombin gene mutation Code(s): I82.409 - Acute embolism and thrombosis of unspecified deep veins of unspecified lower extremity Plan: Has had evaluation with Hematology. Patient has had recurrent DVT. He is on lifelong anticoagulation. Orders: Orders Hemoglobin A1c 06/17/23 R73.09 - Other abnormal glucose Comprehensive [place]. Panel Fast 06/17/23 R73.09 - Other abnormal glucose XR knee LT 3V 06/17/23 M17.12 - Unilateral primary osteoarthritis, left knee Microalbumin, Random (w Creat) 06/17/23 I10 - Essential (primary) hypertension Lipid Panel 06/17/23 E78.9 - Disorder of lipoprotein metabolism, unspecified Coding Level of Care Code Est Pt Level 4 (46723) Diagnoses Essential hypertension I10 Hypertension type: essential hypertension Borderline high cholesterol E78.9 Impaired glucose metabolism R73.09 Class 2 obesity due to excess calories without serious comorbidity with body ma ss index (BMI) of 37.0 to 37.9 in adult E66.09; Z68.37 Body mass index: BMI 37.0-37.9 Obesity classification: adult class 2 (BMI 35 - 39.9) Obesity type: due to excess calories Serious obesity comorbidity presence: without serious comorbidity Primary osteoarthritis of left knee M17.12 Osteoarthritis type: primary Recurrent deep vein thrombosis (DVT) I82.409
== END 2023-06-17 15:59 | disposition home or self-care (01) ==
PROVIDERS: PCP Physician Assistant; Visit Provider Physician Assistant
DX: I10 Essential (primary) hypertension (principal); I82.409 Acute embolism and thrombosis of unspecified deep veins of unspecified lower extremity; E66.09 Other obesity due to excess calories; Z68.37 Body mass index [BMI] 37.0-37.9, adult; E78.9 Disorder of lipoprotein metabolism, unspecified; R73.09 Other abnormal glucose; M17.12 Unilateral primary osteoarthritis, left knee; J45.20 Mild intermittent asthma, uncomplicated
CPT/HCPCS: 99214

== ENCOUNTER 2023-06-17 16:09 | Outpatient (REF) | payer OTHER, SELFPAY ==
--- NOTE | ~2023-06-17 | XR_ITS ---
EXAMINATION: XR KNEE, LEFT CLINICAL INFORMATION: Unilateral primary osteoarthritis, left knee COMPARISON: None available. TECHNIQUE: Standing AP, lateral and tunnel of the left knee. FINDINGS: No fracture or joint effusion. Alignment is anatomic. There is mild narrowing of the medial joint compartment. There is chondrocalcinosis within the medial and lateral joint compartments, more prominent in the lateral joint compartment. XR/XR knee LT 3V IMPRESSION: 1. Mild osteoarthritis of the medial joint compartment. 2. Chondrocalcinosis within the medial and lateral joint compartments.
== END 2023-06-17 16:10 | disposition home or self-care (01) ==
LOC: HO.XRAY 16:09
PROVIDERS: PCP Physician Assistant; Visit Provider Physician Assistant
DX: M17.12 Unilateral primary osteoarthritis, left knee (principal)
CPT/HCPCS: 73562

== ENCOUNTER 2023-08-11 09:59 | Outpatient (AMB) | payer OTHER, SELFPAY ==
[2023-08-11 10:45] VITALS: BP 120/70; PULSE 86; TEMP 37.1; O2SAT 95; BMI 38.9
--- NOTE | 2023-08-11 10:45 | AM.OFFWIN_ITS ---
Intake Vital Signs 08/11/23 10:45 Height 5 ft 6 in Weight 241 lb BMI 38.9 BP 120/70 Blood Pressure Location Lt brachial Position Sitting Pulse 86 Pulse Source Pulse Oximeter Temp 98.7 F Temp Source Temporal Artery Scan Pulse Oximetry (%) 95 Oxygen Delivery Method Room Air Intake Visit Reasons: EP cough asthma (lobby) Intake Note: pt is here today for cough asthma started 2 days ago Patient Tobacco Use Status: Never used Tobacco Allergies warfarin [Coumadin] Allergy (Unknown, Verified 08/11/23 11:14) rash lisinopril Adverse Reaction (Intermediate, Verified 08/11/23 11:14) Cough Medication List - Last Reconciled 08/11/23 by SHUN Gilman albuterol sulfate 90 mcg/actuation (Ventolin HFA) 2 puffs inhalation Q6H PRN apixaban 5 mg PO BID 90 days benzonatate 200 mg PO BID PRN cetirizine (Zyrtec) 10 mg PO DAILY 90 days fluticasone propionate 110 mcg/actuation (Flovent HFA) 1 puff inhalation BID 30 days hydrochlorothiazide 12.5 mg PO DAILY losartan 100 mg PO DAILY 90 days metformin 500 mg PO BID 90 days metoprolol succinate ER 100 mg PO DAILY 90 days montelukast (Singulair) 10 mg PO DAILY 90 days prednisone 20 mg PO BID simvastatin 20 mg PO DAILY 90 days Do you need a note to return to daycare/school/sports/work: Yes HPI HPI Comments History of Present Illness Details Patient is a 62-year-old male in today for a sick visit. Patient states that for the past 2 days he has developed symptoms of cough. Patient states that is keeping him up at night. Does have a past medical history significant for asthma, has been using albuterol inhaler at home with minimal effect. Patient denies chest pain, shortness a breath, dizziness, nausea, vomiting, diarrhea. Patient will be given prednisone, benzonatate. [facility] Medical History Left flank pain Fibroepithelial polyp Papilloma Erectile dysfunction Recurrent deep vein thrombosis (DVT) Surgical History S/P carpal tunnel release History of surgical removal of skin lesion No pertinent past surgical history Family History Father No problems noted. Mother Arthritis Sister Heart attack Son Asthma Social History Housing: House Alcohol intake: former Patient Tobacco Use Status: Never used Tobacco e-Cigarette/Vaping Use: Never Used Second Hand Smoke Exposure: No service: No Current occupational status: employed Current occupation: [employer] Cognitive needs: No Hearing needs: No Vision needs: Yes Review of Systems Const All systems reviewed & are unremarkable except as noted in HPI and below Denies headache(s) and Denies weakness ENT Denies dizziness and Denies headache(s) Card Denies chest pain and Denies dyspnea Resp Reports cough, Denies dyspnea and Denies wheezing GI Denies diarrhea, Denies nausea and Denies vomiting Musc Denies numbness Neuro Denies dizziness, Denies headache(s), Denies numbness and Denies weakness Aller/Immun Denies wheezing Physical Exam Vital Signs: Last Vital Signs Temp 98.7 F 08/11/23 10:45 Pulse 86 08/11/23 10:45 BP 120/70 08/11/23 10:45 Pulse Ox 95 08/11/23 10:45 Oxygen Delivery Method Room Air 08/11/23 10:45 BMI result Body Mass Index 38.9 Vital signs reviewed stable Const Other: Appearance: Alert.? Oriented X3.? No acute distress.? Head: Normocephalic, atraumatic, no step-offs or deformities ENT: Pharynx normal.? Neck: Normal inspection.? Neck supple.? CVS: Normal heart rate and rhythm.? Pulses normal.? Respiratory: No respiratory distress.? Faint bilateral wheeze upper lobes. ? Neuro: Oriented X 3.? No motor deficit.? No sensory deficit. CN 2-12 intact Assessment & Plan Assessment & Plan (1) Cough: Comment: Patient has been instructed to continue utilizing albuterol inhaler as prescribed. Will also prescribe prednisone and benzonatate to be taken as directed. Patient has been educated on the side effects of these medication. Patient has been educated on signs of worsening symptoms and when to report back to the walk-in or when to present to the ED. Code(s): R05.9 - Cough, unspecified Qualifiers: Cough type: unspecified Qualified Code(s): R05.9 - Cough, unspecified Plan: Take your medications as prescribed. If you were prescribed antibiotics today, it is important that you take your medication to their entirety, do not skip any doses, do not finish them early. Follow-up with your primary care provider this week. Return to the emergency department with new or worsening symptoms. Such as fevers, chills, chest pain, shortness of breath, nausea, vomiting, dizziness, headache, vision changes, lethargy In case of emergency call 911 Plan Follow-up with PCP Orders: Orders SARS-CoV2/FLU/RSV Today J06.9 - Acute upper respiratory infection, unspecified Medications: New prednisone 20 mg PO BID 10 tabs 0RF benzonatate 200 mg PO BID PRN 30 caps 0RF cough Coding Level of Care Code Est Pt Level 3 (50390) Diagnoses Cough, unspecified type R05.9 Cough type: unspecified Time Spent (min) 22
== END 2023-08-11 11:42 | disposition home or self-care (01) ==
PROVIDERS: PCP Physician Assistant; Visit Provider Nurse Practitioner Primary Care
DX: R05.9 Cough, unspecified (principal)
CPT/HCPCS: 99213

== ENCOUNTER 2023-08-11 13:33 | Outpatient (REF) | payer OTHER, SELFPAY ==
[2023-08-11 14:35] LABS: Influenza A PCR NEGATIVE (Negative); Influenza B PCR NEGATIVE (Negative); Resp Syncy Virus RNA Qual PCR NEGATIVE (Negative); SARS COV2 PCR INHOUSE NEGATIVE (Negative)
== END 2023-08-11 13:34 | disposition home or self-care (01) ==
LOC: HO.HMGCLNP 13:33
PROVIDERS: Visit Provider Nurse Practitioner Primary Care
DX: J06.9 Acute upper respiratory infection, unspecified (principal)
CPT/HCPCS: 0241U

== ENCOUNTER 2023-11-11 07:28 | Outpatient (REF) | payer OTHER, SELFPAY ==
[2023-11-11 08:22] LABS: Estimated Average Glucose 137 mg/dL; Hemoglobin A1C 171.9251 umol/L; Hemoglobin A1c % 6.4 % (<6.0)
[2023-11-11 08:52] LABS: Alanine Aminotransferase 18 U/L (0-40); Albumin Level 4.2 g/dL (3.5-5.0); Alkaline Phosphatase 93 U/L (39-117); Anion Gap 13 (12-20); Aspartate Amino Transferase 14 U/L (5-37); Bilirubin Total 0.5 mg/dL (0.0-1.0); Blood Urea Nitrogen 19 mg/dL (9-16); Calcium 9.4 mg/dL (8.4-10.2); Carbon Dioxide 27 mmol/L (22-29); Chloride 106 mmol/L (96-108); Cholesterol 162 mg/dL (<200); Estimated Glomerular Filt Rate > 60; Glucose Fasting 126 mg/dL (60-99); HDL Cholesterol 36 mg/dL (>40); LDL Cholesterol Calculated 103 mg/dL (<100); Potassium 4.1 mmol/L (3.3-5.1); Sodium 142 mmol/L (135-145); Total Protein 7.8 g/dL (6.5-8.0); Triglycerides 117 mg/dL (<150)
[2023-11-11 08:55] LABS: Creatinine Urine 119.41 mg/dL; Microalbum/Creatinine Ratio Ur 28.4 ug/mg cr (<30)
== END 2023-11-11 07:29 | disposition home or self-care (01) ==
LOC: HO.LAB 07:28
PROVIDERS: PCP Physician Assistant; Visit Provider Physician Assistant
DX: R73.09 Other abnormal glucose (principal); E78.9 Disorder of lipoprotein metabolism, unspecified; I10 Essential (primary) hypertension
CPT/HCPCS: 36415; 80053; 80061; 82043; 82570; 83036

== ENCOUNTER 2023-12-17 16:10 | Outpatient (AMB) | payer OTHER, SELFPAY ==
--- NOTE | 2023-12-17 16:08 | MHC.PC.OV ---
Vital Signs 12/17/23 16:13 Height 5 ft 6 in Weight 235 lb BMI 37.9 BP 120/62 Blood Pressure Location Lt brachial Position Sitting Pulse 84 Pulse Source Pulse Oximeter Pulse Oximetry (%) 95 Oxygen Delivery Method Room Air Intake Visit Reasons: Annual Exam Intake Note: Patient is here today for a physical. 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 Accompanied by: Self / Same As Patient Allergies warfarin [Coumadin] Allergy (Unknown, Verified 12/17/23 16:16) rash lisinopril Adverse Reaction (Intermediate, Verified 12/17/23 16:16) Cough Medication List - Last Reconciled 12/17/23 by Alejandro Castellanos PA-C albuterol sulfate 90 mcg/actuation (Ventolin HFA) 2 puffs inhalation Q6H PRN apixaban 5 mg PO BID 90 days benzonatate 200 mg PO BID PRN cetirizine (Zyrtec) 10 mg PO DAILY 90 days fluticasone propionate 110 mcg/actuation (Flovent HFA) 1 puff inhalation BID 30 days hydrochlorothiazide 12.5 mg PO DAILY losartan 100 mg PO DAILY 90 days metformin 500 mg PO BID 90 days metoprolol succinate ER 100 mg PO DAILY 90 days montelukast (Singulair) 10 mg PO DAILY 90 days prednisone 20 mg PO BID simvastatin 20 mg PO DAILY 90 days Tobacco use date assessed: 06/17/23 Fall risk assessment: No Falls in past year Last assessed Fall Risk: 12/17/23 Dental Screening Dental Screen Date: 06/17/23 HPI Annual Exam HPI Details Sergio is a 62 year/old M here today for a a follow-up visit ? Patient has a past medical history significant for DVT, hypertension, impaired glucose metabolism, hypertension, obesity. .?? .. ? Hypertension:? Patient's blood pressure today in office slightly elevated. Patient reports his blood pressures have been 130s systolic consistently.? Continues on losartan , hydrochlorothiazide and metoprolol. ? .. ? History of recurrent DVT left lower extremity: Patient seen by Hematology for recurrent DVT-- > 01/24/2020 and recommends long-term anticoagulation.? Otherwise denies any overt signs of bleeding. .. ..Asthma:? Has been well controlled over the last several months? with the addition of maintenance inhalers.? He uses Flovent inhaler twice a day with good effect.? Denies any nighttime awakenings with asthma symptoms. .. .Obesity:?He does understand he needs to be more physically active and admits to being sedentary.? He does understand his BMI is over 30 and continues to try to be more physically active to reduce his weight. .. ..Impaired glucose metabolism:? Patient fasting blood sugar slightly elevated, A1c remains acceptable.? He continues on metformin 500 b.i.d. though has not been taking this medication in quite a while. Colorectal cancer screening: need colonoscopy- willing to do Cologuard Vaccines: Up-to-date with COVID vaccine, tetanus vaccine and PCV vacc. UTD With Flu vaccine. Laboratory Tests 11/01/21 10/27/22 05/19/23 07:10 07:23 06:44 RBC 4.89 Hgb 13.8 L Creatinine Fasting Glucose 118 H 129 H Hemoglobin A1c % Cholesterol 153 LDL Cholesterol, C alc 93 HDL Cholesterol 40 L PSA Screen 3.81 Urine Microalbumin 63.0 05/19/23 11/11/23 11/11/23 06:45 07:40 07:42 RBC Hgb Creatinine 1.21 Fasting Glucose 126 H Hemoglobin A1c % 6.4 H Cholesterol LDL Cholesterol, C alc 103 H HDL Cholesterol PSA Screen Urine Microalbumin 48.0 34.0 PFSH Medical History Left flank pain Fibroepithelial polyp Papilloma Erectile dysfunction Recurrent deep vein thrombosis (DVT) Surgical History S/P carpal tunnel release History of surgical removal of skin lesion No pertinent past surgical history Family History Father No problems noted. Mother Arthritis Sister Heart attack Son Asthma Social History Housing: House Alcohol intake: former Patient Tobacco Use Status: Never used Tobacco e-Cigarette/Vaping Use: Never Used Second Hand Smoke Exposure: No service: No Current occupational status: employed Current occupation: [employer] Cognitive needs: No Hearing needs: No Vision needs: Yes Questionnaire Thrive Questionnaire Date Thrive assessed: 06/17/23 STEPHANIE-7 AMB Questionnaire STEPHANIE-7 Date STEPHANIE - 7 assessed: 06/17/23 Source: Developed by Drs. Yoni Rose, Ml Escobar, Danielito Rachel and colleagues, with an educational danica from [employer]. Review of Systems Const Denies body aches, Denies chills, Denies excessive sweating, Denies fatigue, Denies fever(s) and Denies headache(s) Eyes Denies blurry vision ENT Denies dysphagia, Denies vertigo, Denies dizziness, Denies headache(s), Denies hearing loss and Denies tinnitus Card Denies chest pain, Denies chest pain with activity, Denies syncope, Denies irregular heart rhythm and Denies dyspnea Resp Denies chest congestion, Denies cough, Denies hemoptysis, Denies dyspnea and Denies wheezing GI Denies abdominal pain, Denies melena, Denies hematochezia, Denies coffee ground emesis, Denies dysphagia, Denies diarrhea, Denies nausea and Denies vomiting Denies difficulty urinating, Denies dysuria, Denies urinary frequency, Denies urinary hesitancy and Denies urinary urgency Musc Denies arthralgias, Denies limited range of motion, Denies muscle cramps and Denies muscle weakness Skin/Breast Denies rash and Denies skin ulcer Neuro Denies Abnormal speech present, Denies confusion, Denies vertigo, Denies dizziness, Denies syncope, Denies headache(s), Denies memory loss and Denies seizure-like activity Psych Denies anxiety, Denies confusion, Denies depression, Denies memory loss, Denies panic attacks and Denies paranoia Endo Denies excessive sweating, Denies fatigue, Denies flushing, Denies polydipsia and Denies polyuria Aller/Immun Denies wheezing Physical exam (Primary Care) Vital Signs: Last Vital Signs Pulse 84 12/17/23 16:13 BP 120/62 12/17/23 16:13 Pulse Ox 95 12/17/23 16:13 Oxygen Delivery Method Room Air 12/17/23 16:13 BMI result Body Mass Index 37.9 Tobacco/Smoking Status: Tobacco use Status Tobacco use date assessed 06/17/23 12/17/23 16:09 Patient Tobacco Use Status Never used Tobacco 12/17/23 16:09 e-Cigarette/Vaping Use Never Used 12/17/23 16:09 Thrive Assessment: Date of Thrive Assessment Date Thrive assessed 06/17/23 12/17/23 16:09 Const General: cooperative, comfortable, no acute distress, alert and awake; No confusion Orientation/consciousness: oriented to person, oriented to place, patient oriented x3 and No confusion HENMT Head: Yes normocephalic Ears: external ears normal and TM's normal bilaterally Face and sinus: No sinus tenderness Mouth: Normal oral and palatal mucosa present and tongue normal Teeth and gingiva: dentition normal and gingiva normal Throat: Yes posterior oropharynx normal, Yes tonsils normal and Yes uvula midline Eyes Conjunctivae: conjunctivae normal Sclerae: sclerae normal Pupils: Equal, round and reactive pupils present EOM: EOMs intact bilaterally Direct Ophthalmoscopy: No no photophobia Neck Neck: Yes no lymphadenopathy, No tender and Yes no JVD Thyroid: Thyroid normal Carotids: no bruits Chest Chest palpation & inspection: no tenderness Resp Effort & Inspection: normal respiratory effort, no audible wheezes, not labored and no stridor Auscultation: no crackles, no rales, no rhonchi and no wheezes Cardio Jugular venous distension: no JVD Rate: regular rate, not bradycardic and not tachycardic Rhythm: regular rhythm Bruits: no carotid bruits Peripheral pulses: Peripheral pulses 2+ throughout GI Inspection: Yes normal to inspection, No abdominal wall ecchymosis and No visible herniation Palpation (GI): Soft to palpation, nontender, no guarding, not rigid and No hepatosplenomegaly present Auscultation: normoactive bowel sounds General: Yes no CVA tenderness Back/Spine/Pelvis Back: no CVA tenderness and No back tenderness Cervical Spine: cervical ROM normal Thoracic/Lumbar Spine: thoracic and lumbar spine normal to inspection, straight leg raise negative bilaterally, No thoraco-lumbar ROM limited and No lumbar spinal tenderness Skin Lesions: no lesions Rashes: no rashes Wounds: no wounds Neuro General: oriented to person, oriented to place, patient oriented x3, CN's II-XI intact bilaterally and No confusion Cranial nerves: Yes Equal, round and reactive pupils present and Yes Normal accommodation reflex present Cognition (Neuro): normal cognition Speech: No Abnormal speech present Gait exam (Neuro): Normal gait present Motor exam (neuro): 5/5 motor strength present throughout Extrem Right upper extremity: full ROM; no cyanosis Left upper extremity: full ROM; no cyanosis Right lower extremity: no edema Left lower extremity: no edema Psych Appearance: grossly normal Mental Status: mental status grossly normal Affect: normal affect Attitude: cooperative Thought process: Normal thought process present Assessment and Plan Assessment & Plan (1) Annual physical exam: Code(s): Z00.00 - Encounter for general adult medical examination without abnormal findings (2) HTN (hypertension): Code(s): I10 - Essential (primary) hypertension Qualifiers: Hypertension type: essential hypertension Qualified Code(s): I10 - Essential (primary) hypertension Plan: Patient's blood pressure acceptable today in office. Will continue current dose of antihypertensive . Goal blood pressure to be below 40/90 (3) Borderline high cholesterol: Code(s): E78.9 - Disorder of lipoprotein metabolism, unspecified Plan: Patient's most recent lipid panel stable. Continues on low-dose statin therapy. Goal LDL to remain below 160 (4) Impaired glucose metabolism: Code(s): R73.09 - Other abnormal glucose Plan: Patient fasting blood sugar remains slightly elevated. Recent A1c is 6.4. A1cs have been not in diabetic range. Patient continues on metformin 500 b.i.d.. A1c acceptable. Continue on lifestyle to reduce carbohydrates in his diet. (5) Recurrent deep vein thrombosis (DVT): Comment: Pulmonary embolism in 2016- [place]- heterozygous positivity for prothrombin gene mutation Code(s): I82.409 - Acute embolism and thrombosis of unspecified deep veins of unspecified lower extremity Plan: Has had evaluation with Hematology. Patient has had recurrent DVT. He is on lifelong anticoagulation. (6) Colon cancer screening: Code(s): Z12.11 - Encounter for screening for malignant neoplasm of colon Plan: Willing to do Cologuard (7) Microalbuminuria: Code(s): R80.9 - Proteinuria, unspecified Plan: Has mild microalbuminuria. Will continue to control blood pressure and blood sugars. He will continue working on lifestyle modifications to reduce his weight. Orders: Orders Hemoglobin A1c 12/17/23 R73.09 - Other abnormal glucose Lipid Panel 12/17/23 E78.9 - Disorder of lipoprotein metabolism, unspecified Microalbumin, Random (w Creat) 12/17/23 I10 - Essential (primary) hypertension Comprehensive [place]. Panel Fast 12/17/23 I10 - Essential (primary) hypertension Complete Blood Count no Diff 12/17/23 I82.409 - Acute embolism and thrombosis of unspecified deep veins of unspecified lower extremity Referrals Cologuard Test Z12.11 - Encounter for screening for malignant neoplasm of colon Patient Instructions: Goal: Blood pressure to remain below 140/90, A1c to remain below 6.5 Barrier: Adherence to physical activity and healthy eating habits Coding Level of Care Code Est Pt Prev Care 40-64y(74138) Diagnoses Annual physical exam Z00.00 Essential hypertension I10 Hypertension type: essential hypertension Borderline high cholesterol E78.9 Impaired glucose metabolism R73.09 Recurrent deep vein thrombosis (DVT) I82.409 Colon cancer screening Z12.11 Microalbuminuria R80.9
[2023-12-17 16:13] VITALS: BP 120/62; PULSE 84; O2SAT 95; BMI 37.9
== END 2023-12-17 16:26 | disposition home or self-care (01) ==
PROVIDERS: PCP Physician Assistant; Visit Provider Physician Assistant
DX: Z00.00 Encounter for general adult medical examination without abnormal findings (principal); I82.409 Acute embolism and thrombosis of unspecified deep veins of unspecified lower extremity; E78.9 Disorder of lipoprotein metabolism, unspecified; R73.09 Other abnormal glucose; R80.9 Proteinuria, unspecified
CPT/HCPCS: 99396

== ENCOUNTER → 2024-02-02 10:27 | Outpatient (RCR) | payer OTHER, SELFPAY ==
--- NOTE | 2021-01-30 15:51 | PM.HEMONCPN ---
Medical Summary - Medical Summary Date of Service: 01/30/21 Chief complaint: Follow-up Medical Summary: Diagnosis: left extremity DVT and bilateral pulmonary emboli in a hospital in [place] in November 2015. Stopped anticoagulation in 2017?, recurrent DVT in September 2019. On November 25, 2015, he had an ultrasound and CT abdomen, which demonstrated enlarged right inguinal lymph nodes and an extensive left lower extremity DVT. A CT angiogram demonstrated multifocal right-sided non-saddle PE. CT abdomen and pelvis also demonstrated enlarged prostate and sclerotic areas in pubic symphysis and right proximal femur. Vascular Surgery was consulted, but no surgical management was deemed necessary. The patient was on Lovenox and later bridged to Coumadin. He developed an allergic skin rash, which was felt related to Coumadin and he was switched to Xarelto. He developed acute kidney injury at presentation, improved with hydration. He was eventually discharged to a rehabilitation center after 2 weeks of hospitalization. No family history of thromboembolism. Thrombophilia workup demonstrated heterozygous positivity for prothrombin gene mutation. CT abdomen and pelvis performed 02/05/16 demonstrated shotty bilateral pelvic and inguinal lymphadenopathy but not enlarged. Prostate gland was enlarged. A 2 cm sclerotic lesion in the right proximal femoral shaft as well as right-sided pubic symphysis with soft tissue thickening. PSA 3.26, no definite abnormality on bone scan. Interval History Interval history: Patient is here in follow-up. He is doing quite well and has no new complaints today. He remains on Eliquis twice daily and has no complaints such as bruising or bleeding. He had blood work a few months ago and it was normal. Review of Systems - Constitutional Reports as per HPI, Reports no additional constitutional complaints [facility] Medical History: Medical History (Last Reviewed 01/30/21 @ 15:57 by Madelaine Estrada) Recurrent deep vein thrombosis (DVT) Family History: Family History (Last Reviewed 01/30/21 @ 15:57 by Madelaine Estrada) Father No problems noted. Mother Arthritis Sister Heart attack Son Asthma Surgical History: Surgical History (Last Reviewed 01/30/21 @ 15:57 by Madelaine Estrada) No pertinent past surgical history Social History: Social History (Last Updated 01/30/21 @ 15:57 by Madelaine Estrada) Living Situation History: Housing: House Alcohol History: Alcohol intake: former Alcohol History Details: Alcohol intake frequency: does not drink Tobacco History: Patient Tobacco Use Status: Never used Tobacco Substance Use History: Use of substances other than those prescribed or required for medical reasons: No Oncology Screenings - ECOG Performance Status ECOG Performance Status: 0 Home Medications and Allergies Allergies Allergy/AdvReac Type Severity Reaction Status Date / Time warfarin [Coumadin] Allergy Unknown rash Verified 01/30/21 15:58 Exam Vital signs: Vital Signs Temp Pulse Resp BP Pulse Ox 01/30/21 15:55 98.0 F 84 14 151/72 H 96 Intake and Output 01/30/21 01/30/21 01/30/21 06:59 14:59 22:59 Other: Weight 107.6 kg Weight in Grams [id number] Patient Weight 01/31/21 06:59 Weight 107.6 kg - Constitutional Present: no acute distress - Routine HEENT Exam Head: Present: normal inspection Eye: Present: EOMI, PERRL - Routine Neck Exam Present: full ROM. Absent: lymphadenopathy - Routine Respiratory Exam Present: CTAB - Routine Cardiovascular Exam Cardiovascular: Present: RRR, S1, S2 - Routine Extremities Exam Absent: pedal edema Data - Labs Labs: Laboratory Tests 02/01/20 10/09/20 09:55 09:29 WBC 9.1 RBC 5.06 Hgb 14.2 Hct 43.9 MCV 86.8 MCH 28.1 MCHC 32.3 RDW 13.8 RDW Coeff of Wendie 13.4 Plt Count 353 Assessment and Plan Patient Active problem list reviewed?: Yes (1) Recurrent deep vein thrombosis (DVT) Status: Chronic Assessment and plan: 1. This is a 60-year-old man who presented with heterozygous positivity for prothrombin gene mutation who developed spontaneous extensive left lower extremity deep venous thrombosis and bilateral pulmonary emboli in November 2015 in [place]. Recurrent left lower extremity DVT in September 2019 when he was taken off anticoagulation. Patient is now on Eliquis 5 mg p.o. b.i.d.. He is tolerating it well. He is aware that he needs to be on this long-term. He is doing well and blood work was normal in September 2020. Follow-up in 1 year. - Time Spent With Patient Time Spent with Patient (in minutes): 15
[2021-01-30 15:55] VITALS: BP 151/72; PULSE 84; RESP 14; TEMP 36.7; O2SAT 96; BMI 38.2
--- NOTE | 2021-01-30 16:32 | MHC.HEMONCMA ---
Patient came in for a follow up, states he is doing well. Clinical summary was reviewed and updated. Patient had labs recently so none were sergei today, he was booked for a 1 year follow up.
== END | disposition home or self-care (01) ==
LOC: HO.ONC 01-30 15:48
PROVIDERS: PCP Physician Assistant; Visit Provider Internal Medicine
DX: R76.0 Raised antibody titer (principal); Z86.718 Personal history of other venous thrombosis and embolism; Z86.711 Personal history of pulmonary embolism; Z79.01 Long term (current) use of anticoagulants
CPT/HCPCS: 99213

== ENCOUNTER 2024-08-22 15:05 | Outpatient (AMB) | payer OTHER, SELFPAY ==
--- NOTE | 2024-08-22 16:01 | A.OFFPC_ITS ---
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 Accompanied by: Spouse Allergies warfarin [Coumadin] Allergy (Unknown, Verified 08/22/24 16:21) rash lisinopril Adverse Reaction (Intermediate, Verified 08/22/24 16:21) Cough Medication List - Last Reconciled 08/22/24 by Alejandro Castellanos PA-C albuterol sulfate 90 mcg/actuation (Ventolin HFA) 2 puffs inhalation Q6H PRN apixaban 5 mg PO BID 90 days benzonatate 200 mg PO BID PRN cetirizine (Zyrtec) 10 mg PO DAILY 90 days fluticasone propionate 110 mcg/actuation (Flovent HFA) 1 puff inhalation BID 30 days hydrochlorothiazide 12.5 mg PO DAILY losartan 100 mg PO DAILY 90 days metformin 500 mg PO BID 90 days metoprolol succinate ER 100 mg PO DAILY 90 days montelukast (Singulair) 10 mg PO DAILY 90 days prednisone 20 mg PO BID simvastatin 20 mg PO DAILY 90 days Tobacco use date assessed: 08/22/24 Fall risk assessment: No Falls in past year Last assessed Fall Risk: 08/22/24 Dental Screening Dental Screen Date: 08/22/24 Did you have a dental visit in the last 12 months?: Yes Did you have a dental problem in the last 6 months where you did not have access to dental care?: Yes Was dental information given to patient?: Yes HPI f/u htn HPI Details Sergio is a 63 year/old M here today for a a follow-up visit ? Patient has a past medical history significant for DVT, hypertension, impaired glucose metabolism, hypertension, obesity. Concerns--> report having left knee pain and right lateral hip pain. He is interested in getting x-rays of his hip and knee. .?? .. ? Hypertension:? Patient's blood pressure today in office slightly elevated. Patient reports his blood pressures have been 130s systolic consistently.? Continues on losartan , hydrochlorothiazide and metoprolol. ? .. ? History of recurrent DVT left lower extremity: Patient seen by Hematology for recurrent DVT-- > 01/24/2020 and recommends long-term anticoagulation.? Otherwise denies any overt signs of bleeding. .. ..Asthma:? Has been well controlled over the last several months? with the addition of maintenance inhalers.? He uses Flovent inhaler twice a day with good effect.? Denies any nighttime awakenings with asthma symptoms. .. .Obesity: He has unfortunately gained w eight since last office weight. ?He does understand he needs to be more physically active and admits to being sedentary.? He does understand his BMI is over 30 and continues to try to be more physically active to reduce his weight. .. ..Impaired glucose metabolism:? Patient fasting blood sugar slightly elevated, A1c remains acceptable.? He admits to dietary indiscretion and has gained weight since last office visit. He continues on metformin 500 b.i.d. though has not been taking this medicat ion in quite a while. Does report having polyuria and leg cramps which is likely related to his high blood sugars. [facility] Medical History Left flank pain Fibroepithelial polyp Papilloma Erectile dysfunction Recurrent deep vein thrombosis (DVT) Surgical History S/P carpal tunnel release History of surgical removal of skin lesion No pertinent past surgical history Family History Father No problems noted. Mother Arthritis Sister Heart attack Son Asthma Social History Housing: House Alcohol intake: former Patient Tobacco Use Status: Never used Tobacco e-Cigarette/Vaping Use: Never Used Second Hand Smoke Exposure: No service: No Current occupational status: employed Current occupation: [employer] Cognitive needs: No Hearing needs: No Vision needs: Yes Questionnaire PHQ-9 Over the last 2 weeks, how often have you been bothered by any of the following problems? 1. Little interest or pleasure in doing things: not at all 2. Feeling down, depressed, or hopeless: not at all 3. Trouble falling or staying asleep, or sleeping too much: not at all 4. Feeling tired or having little energy: not at all 5. Poor appetite or overeating: not at all 6. Feeling bad about yourself - or that you are a failure or have let yourself or your family down: not at all 7. Trouble concentrating on things, such as reading the newspaper or watching television: not at all 8. Moving or speaking so slowly that other people could have noticed. Or the opposite - being so fidgety or restless that you have been moving around a lot more than usual: not at all 9. Thoughts that you would be better off or of hurting yourself in some way: not at all Total score: 0 Depression Screening Interpretation: Negative Depression Screening Done: Yes 24157 - PHQ-9 Billing: Yes Source: Developed by Drs. Yoni Rose, Ml Escobar, Danielito Rachel and colleagues, with an educational danica from [employer] Thrive Questionnaire Date Thrive assessed: 08/22/24 I am a: Patient What is your living situation today?: I have a steady place to live Within the past 12 months, did the food you bought not last and you didn't have the money to get more?: Never true Within the past 12 months, did you worry whether your food would run out before you got money to buy more?: Never true Do you have trouble paying for medicines?: No Do you have trouble getting transportation to medical appointments?: No Do you have trouble paying your heating and electricity bill?: No Do you have trouble taking care of your child, family member or friend?: No Do you have trouble with day-to-day activities such as bathing, preparing meals, shopping, managing finances, etc.?: No Are you currently unemployed and looking for a job?: No Are you interested in more education?: No Please select the resources that you would like help with: None Currently or been in a relationship where the following occur: No concerns reported THRIVE Score: 0 AUDIT C Alcohol Use Questionnaire (AUDIT-C) 1. How often do you have a drink containing alcohol?: Never 3. How often do you have six or more drinks on one occasion?: Never Total Score: 0 STEPHANIE-7 AMB Questionnaire STEPHANIE-7 Date STEPHANIE - 7 assessed: 08/22/24 Feeling nervous, anxious, or on edge: 0 = Not at all Not being able to stop or control worryin = Not at all Worrying too much about different things: 0 = Not at all Trouble relaxin = Not at all Being so restless that it is hard to sit still: 0 = Not at all Becoming easily annoyed or irritable: 0 = Not at all Feeling afraid as if something awful might happen: 0 = Not at all Total STEPHANIE-7 score (0-4 normal; 5-9 mild; 10-14 moderate; 15-21 severe): 0 Source: Developed by Drs. Yoni Rose, Ml Escobar, Danielito Rachel and colleagues, with an educational danica from [employer] STEPHANIE-7 Assessment Billing STEPHANIE-7 Assessment Tool: STEPHANIE-7 Assessment 45115 Review of Systems Const Denies headache(s) Eyes Denies loss of vision ENT Denies vertigo, Denies dizziness, Denies headache(s) and Denies sore throat Card Denies chest pain, Denies leg edema and Denies lightheadedness Resp Denies cough, Denies hemoptysis and Denies wheezing GI Denies abdominal pain, Denies melena, Denies constipation, Denies diarrhea and Denies vomiting Denies dysuria, Denies urinary frequency and Denies urinary urgency Musc Denies arthralgias, Denies joint swelling, Denies numbness and Denies tingling Neuro Denies Abnormal speech present, Denies behavioral changes, Denies vertigo, Denies dizziness, Denies headache(s), Denies loss of vision, Denies memory loss, Denies numbness and Denies tingling Psych Denies anxiety, Denies behavioral changes, Denies depression, Denies memory loss and Denies panic attacks Dominguez/Lymph Denies easy bleeding and Denies easy bruising Aller/Immun Denies wheezing Physical exam (Primary Care) Vital Signs: Last Vital Signs Temp 97.3 F 08/22/24 16:02 Pulse 85 08/22/24 16:02 BP 140/70 H 08/22/24 16:02 Pulse Ox 97 08/22/24 16:02 Oxygen Delivery Method Room Air 08/22/24 16:02 BMI result Body Mass Index 39.3 BMI Assessment/Plan discussion: High BMI High, discussed plan: lifestyle, weight reduction, dietary and physical activity Tobacco/Smoking Status: Tobacco use Status Tobacco use date assessed 08/22/24 08/22/24 16:11 Patient Tobacco Use Status Never used Tobacco 08/22/24 16:02 e-Cigarette/Vaping Use Never Used 08/22/24 16:02 PHQ-9: PHQ-9 Score PHQ-9: Total score 0 08/22/24 16:11 Depression Screening Interpretation: Negative Thrive Assessment: Date of Thrive Assessment Date Thrive assessed 08/22/24 08/22/24 16:11 Currently or been in a relationship where the following occur: No concerns reported Const Other: OBESE General: healthy appearing, no acute distress, alert and awake Nutritional Appearance: well nourished Orientation/consciousness: oriented to person, oriented to place and oriented to time HENMT Ears: TM's normal bilaterally General nose exam: Normal nasal mucous membranes and turbinates present Eyes Conjunctivae: conjunctivae normal Sclerae: sclerae normal Pupils: Equal, round and reactive pupils present Neck Neck: Yes no lymphadenopathy and Yes no JVD Thyroid: Thyroid normal Carotids: no bruits Resp Effort & Inspection: normal respiratory effort and not tachypneic Auscultation: no crackles, no rales, no rhonchi and no wheezes Cardio Rate: regular rate Rhythm: regular rhythm Heart sounds: no murmurs and normal S1 and S2 GI Palpation (GI): Soft to palpation, nontender, no hepatomegaly and no splenomegaly Auscultation: normal bowel sounds Skin General skin exam: no rashes or lesions noted and dry skin Neuro General: oriented to person, oriented to place and oriented to time Cranial nerves: Yes Equal, round and reactive pupils present Speech: No Abnormal speech present Gait exam (Neuro): Normal gait present Motor exam (neuro): no tremor noted Extrem Right upper extremity: full ROM Left upper extremity: full ROM Right lower extremity: full ROM; no edema Left lower extremity: full ROM; no edema Psych Mental Status: mental status grossly normal Speech and movement: Normal speech and movement present Affect: normal affect Attitude: cooperative Thought process: Normal thought process present Coding Level of Care Code Est Pt Level 4 (07650) Diagnoses Recurrent deep vein thrombosis (DVT) I82.409 Mild intermittent asthma without complication J45.20 Asthma severity: mild Asthma persistence: intermittent Asthma complication type: uncomplicated Essential hypertension I10 Hypertension type: essential hypertension Chronic pain of left knee M25.562; G89.29 Chronicity: chronic Class 2 obesity E66.812 Additional Codes STEPHANIE-7 Assessment Billing - STEPHANIE-7 Assessment Tool: STEPHANIE-7 Assessment 13480 ([id number]) PHQ-9 - 63182 - PHQ-9 Billing: Yes ([id number]) Assessment & Plan Assessment & Plan (1) Recurrent deep vein thrombosis (DVT): Comment: Pulmonary embolism in 2016- [place]- heterozygous positivity for prothrombin gene mutation Code(s): I82.409 - Acute embolism and thrombosis of unspecified deep veins of unspecified lower extremity Category: Medical Plan: Patient continues on Eliquis indefinitely. Has had 2 blood clots in his left lower extremity. He does have a family history of blood clotting disorder. (2) Asthma: Code(s): J45.909 - Unspecified asthma, uncomplicated Category: Medical Qualifiers: Asthma severity: mild Asthma persistence: intermittent Asthma complication type: uncomplicated Qualified Code(s): J45.20 - Mild intermittent asthma, uncomplicated Plan: Patient reports his asthma has been well controlled, uses an albuterol inhaler on an as needed basis. Denies any nighttime awakenings with asthma symptoms or recent asthma exacerbations. (3) HTN (hypertension): Code(s): I10 - Essential (primary) hypertension Category: Medical Qualifiers: Hypertension type: essential hypertension Qualified Code(s): I10 - Essential (primary) hypertension Plan: Patient's blood pressure slightly elevated today in office. Has gained weight since last office visit. He admits to some dietary indiscretion. Does not regularly monitor his blood pressure at home and now promises to do so. Goal blood pressures to be below 140/90 (4) Left knee pain: Code(s): M25.562 - Pain in left knee Category: Medical Qualifiers: Chronicity: chronic Qualified Code(s): M25.562 - Pain in left knee; G89.29 - Other chronic pain Plan: Patient reports having some left knee pain. He attributes this to arthritis. He is willing to get a x-ray of his left knee. (5) Class 2 obesity: Code(s): E66.812 - Obesity, class 2 Category: Medical Plan: Patient does understand in no his BMI is over 35 and will work on being more physically active and adapting to better eating habits to reduce his weight. Orders: Orders XR knee LT 4V Today M25.562 - Pain in left knee Prostate Specific Antigen Scr Today M25.562 - Pain in left knee, Z12.5 - Encounter for screening for malignant neoplasm of prostate XR hip RT 1V Today M25.562 - Pain in left knee Patient Instructions: Goal: Blood pressure to be below 140/90, LDL to be below 130 Barriers: Adherence to physical activity and healthy eating habits
[2024-08-22 16:02] VITALS: BP 140/70; PULSE 85; TEMP 36.3; O2SAT 97; BMI 39.3
--- OUTSIDE RECORDS SUMMARY | 2024-08-22 17:01 | XMS_ITS | Clinical Summary ---
[facility] [address] [place] [address] Care Team Providers Care Electric Scoop Operator Name Role Phone Alejandro Castellanos Primary Care Provider Social History Tobacco Use Types Packs/Day Years Used Date Smoking Tobacco: Never Assessed Sex and Gender Information Value Date Recorded Sex Assigned at Not on file Legal Sex Male 5:08 PM EST Gender Identity Not on file Sexual Orientation Not on file Plan of Treatment Health Maintenance Due Date Last Done Comments DTaP,Tdap,and Td Vaccines (1 - Tdap) 10/15/1978 Pneumococcal Vaccine: 50+ Ye ars (1 of 1 - PCV) 10/15/2009 Zoster Vaccines (1 of 2) 10/15/2009 COVID-19 Vaccine (1 - 2023-2 5 season) 2024 Influenza Vaccine (#1) 2024 RSV Immunization Patients 60 + Years Old (1 - 1-dose 75+ series) 10/15/2034 HIB Vaccines Aged Out No longer eligi ble based on patient's age to complete this topic HPV Vaccines Aged Out No longer eligi ble based on patient's age to complete this topic Hepatitis A Vaccines Aged Out No long er eligible based on patient's age to complete this topic Hepatitis B Vaccines Aged Out No long er eligible based on patient's age to complete this topic IPV Vaccines Aged Out No longer eligi ble based on patient's age to complete this topic MMR Vaccines Aged Out No longer eligi ble based on patient's age to complete this topic Meningococcal ACWY Vaccine Aged Out N o longer eligible based on patient's age to complete this topic Meningococcal B Vacine Aged Out No lo nger eligible based on patient's age to complete this topic Pneumococcal Vaccine: Pediat rics (0 to 5 Years) and At-Risk Patients (6 to 64 Years) Aged Out No longer eligible b ased on patient's age to complete this topic RSV Immunization Patients Un leonel 20 months Aged Out No longer eligible b ased on patient's age to complete this topic Varicella Vaccines Aged Out No longer eligible based on patient's age to complete this topic Care Teams Electric Scoop Operator Relationship Specialty Start Date End Date Alejandro Castellanos PA PCP - General Internal Medicine 07/20/18
== END 2024-08-22 16:38 | disposition home or self-care (01) ==
LOC: HO.HMCH 15:06
PROVIDERS: PCP Physician Assistant; Visit Provider Physician Assistant
DX: I82.409 Acute embolism and thrombosis of unspecified deep veins of unspecified lower extremity (principal); J45.20 Mild intermittent asthma, uncomplicated; E66.812 Obesity, class 2; Z68.39 Body mass index [BMI] 39.0-39.9, adult; M25.562 Pain in left knee; I10 Essential (primary) hypertension; G89.29 Other chronic pain

== ENCOUNTER → 2024-08-22 15:05 | Outpatient (BNVA) | payer OTHER, SELFPAY | PROVIDERS: PCP Physician Assistant; Visit Provider Physician Assistant | DX: I82.409 Acute embolism and thrombosis of unspecified deep veins of unspecified lower extremity (principal); I10 Essential (primary) hypertension; J45.20 Mild intermittent asthma, uncomplicated; M25.562 Pain in left knee; G89.29 Other chronic pain; E66.812 Obesity, class 2; Z68.39 Body mass index [BMI] 39.0-39.9, adult | CPT/HCPCS: 96127; 99212 ==

== ENCOUNTER 2024-09-02 07:52 | Outpatient (REF) | payer OTHER, SELFPAY ==
--- OUTSIDE RECORDS SUMMARY | 2024-09-02 07:54 | XMS_ITS | Clinical Summary ---
Author Organization [facility] ity Address [address] [place] [address] Care Team Providers Care Narrow Gauge Brakeman Name Role Phone Alejandro Castellanos Primary Care [...] - 2023-2 5 season) 2024 Influenza Vaccine (Season Ended) 2025 RSV Immunization Adult Patie nts (1 - 1-dose 75+ series) 10/15/2034 HIB [...] age to complete this topic Meningococcal B Vaccine Aged Out No l onger eligible based on patient's age to complete [...] age to complete this topic Care Teams Narrow Gauge Brakeman Relationship Specialty Start Date End Date Alejandro Castellanos PA PCP - General Internal Medicine 07/20/18
[2024-09-02 08:44] LABS: Hematocrit 39.6 % (42.0-52.0); Hemoglobin 13.3 g/dl (14.0-18.0); Mean Corpuscular HGB Conc 33.6 g/dl (31.0-36.0); Mean Corpuscular Hemoglobin 28.5 pg (27.0-33.0); Mean Corpuscular Volume 84.8 fL (80.0-98.0); Mean Platelet Volume 10.5 fL (9.4-12.4); Platelet Count 313 X10*3/uL (160-400); Red Blood Count 4.67 X10*6/uL (4.60-5.80); Red Cell Distribution Width 13.5 % (11.0-16.0); White Blood Count 7.9 X10*3/uL (4.8-10.8)
[2024-09-02 08:56] LABS: Estimated Average Glucose 151 mg/dL; Hemoglobin A1C 185.8267 umol/L; Hemoglobin A1c % 6.9 % (<6.0)
[2024-09-02 09:23] LABS: Alanine Aminotransferase 19 U/L (0-40); Albumin Level 4.3 g/dL (3.5-5.0); Alkaline Phosphatase 91 U/L (39-117); Anion Gap 12 (12-20); Aspartate Amino Transferase 21 U/L (5-37); Bilirubin Total 0.5 mg/dL (0.0-1.0); Blood Urea Nitrogen 21 mg/dL (9-16); Calcium 9.7 mg/dL (8.4-10.2); Carbon Dioxide 27 mmol/L (22-29); Chloride 108 mmol/L (96-108); Cholesterol 147 mg/dL (<200); Estimated Glomerular Filt Rate > 60; Glucose Fasting 135 mg/dL (60-99); HDL Cholesterol 39 mg/dL (>40); LDL Cholesterol Calculated 96 mg/dL (<100); Sodium 143 mmol/L (135-145); Total Protein 7.6 g/dL (6.5-8.0); Triglycerides 63 mg/dL (<150)
[2024-09-02 09:41] LABS: Prostate Specific Antigen Scr 3.42 ng/mL (<0.05-4.0)
[2024-09-02 10:03] LABS: Creatinine Urine 98.57 mg/dL; Microalbum/Creatinine Ratio Ur 43.6 ug/mg cr (<30)
== END 2024-09-02 07:53 | disposition home or self-care (01) ==
LOC: HO.LAB 07:52
PROVIDERS: PCP Physician Assistant; Visit Provider Physician Assistant
DX: R73.09 Other abnormal glucose (principal); E78.9 Disorder of lipoprotein metabolism, unspecified; I82.409 Acute embolism and thrombosis of unspecified deep veins of unspecified lower extremity; I10 Essential (primary) hypertension; Z12.5 Encounter for screening for malignant neoplasm of prostate; M25.562 Pain in left knee
CPT/HCPCS: 36415; 80053; 80061; 82043; 82570; 83036; 84153; 85027

== ENCOUNTER 2024-09-03 09:19 | Outpatient (REF) | payer OTHER, SELFPAY ==
--- NOTE | ~2024-09-03 | XR_ITS ---
CLINICAL HISTORY: M25.562 - Pain in right hip 2 views right hip Comparison: None Findings: No fractures or dislocations. No significant arthritic change. There is a 2.7 cm endosteal osteoblastic lesion in the subtrochanteric region of the proximal right femur No radiopaque foreign body. Impression: Proximal right femur endosteal osteoblastic lesion. The differential diagnosis would include osteoblastic metastasis and because there is no lytic destruction, benign enostosis would also be included in the differential diagnosis.. Based on size criteria and because symptomatic, nonurgent MRI with contrast is recommended. This document has been electronically signed by: Devon Sorto MD on 09/05/2024 13:40:26
--- NOTE | ~2024-09-03 | XR_ITS ---
CLINICAL HISTORY: M25.562 - Pain in left knee 4 views left knee Comparison: 06/17/2023 Findings: No fractures or dislocations. No joint effusion There is moderate degenerative narrowing of the medial femoral tibial joint distance. Calcification is present in the lateral meniscus. No radiopaque foreign body Impression: No acute skeletal abnormality. Moderate degenerative narrowing of the medial femorotibial joint space. Calcium pyrophosphate deposition disease. Probable full-thickness cartilage defect involving the medial patellar facet. This document has been electronically signed by: Devon Sorto MD on 09/05/2024 14:28:05
--- OUTSIDE RECORDS SUMMARY | 2024-09-03 09:22 | XMS_ITS | Clinical Summary ---
Author Organization [facility] ity Address [address] [place] [address] Care Team Providers Care [employer] Team Member Name Role Phone Alejandro Castellanos Primary Care [...] age to complete this topic Care Teams [employer] Team Member Relationship Specialty Start Date End Date Alejandro Castellanos PA PCP - General Internal Medicine 07/20/18
== END 2024-09-03 09:20 | disposition home or self-care (01) ==
LOC: HO.XRAY 09:19
PROVIDERS: PCP Physician Assistant; Visit Provider Physician Assistant
DX: M25.852 Other specified joint disorders, left hip (principal); M25.851 Other specified joint disorders, right hip; M25.561 Pain in right knee; M25.562 Pain in left knee
CPT/HCPCS: 73502; 73564

== ENCOUNTER → 2024-09-03 09:24 | Outpatient (BNV) | payer OTHER, SELFPAY | PROVIDERS: PCP Physician Assistant; Visit Provider Radiology Diagnostic Radiology | DX: M17.12 Unilateral primary osteoarthritis, left knee (principal); M11.262 Other chondrocalcinosis, left knee; M89.251 Other disorders of bone development and growth, right femur | CPT/HCPCS: 73502; 73564 ==

== ENCOUNTER 2024-09-11 18:28 | Outpatient (REF) | payer OTHER, SELFPAY ==
--- OUTSIDE RECORDS SUMMARY | 2024-09-11 18:31 | XMS_ITS | Clinical Summary ---
Author Organization [facility] [employer] [facility] ity Address [address] [place] [address] Care Team Providers Care Crane Rigger Name Role Phone Alejandro Castellanos Primary Care [...] age to complete this topic Care Teams Crane Rigger Relationship Specialty Start Date End Date Alejandro Castellanos PA PCP - General Internal Medicine 07/20/18
== END 2024-09-11 18:29 | disposition home or self-care (01) ==
LOC: HO.MRI 18:28
PROVIDERS: PCP Physician Assistant; Visit Provider Physician Assistant
DX: M89.8X5 Other specified disorders of bone, thigh (principal)
CPT/HCPCS: 73721

== ENCOUNTER → 2024-09-11 18:35 | Outpatient (BNV) | payer OTHER, SELFPAY | PROVIDERS: PCP Physician Assistant; Visit Provider Radiology Diagnostic Radiology | DX: M76.01 Gluteal tendinitis, right hip (principal); N40.1 Benign prostatic hyperplasia with lower urinary tract symptoms; M24.851 Other specific joint derangements of right hip, not elsewhere classified | CPT/HCPCS: 73721 ==